=== PATIENT | male | born 1965 | race African-American/Black ===

== ENCOUNTER 2019-09-07 08:52 | Emergency (ER) | payer SELFPAY ==
--- NOTE | ~2019-09-07 | XR_ITS ---
EXAMINATION: XR knee RT min 4V DATE: 09/07/2019 09:28 INDICATION: Right knee joint effusion and pain. TECHNIQUE: 4 views of right knee were obtained. COMPARISON: Right knee radiographs 07/14/2017 FINDINGS: Bone alignment is normal. No fracture. There is severe osteoarthritis of lateral compartmen t and moderate osteoarthritis of medial and patellofemoral compartments. There is a large knee joint effusion. IMPRESSION: 1. Severe right knee osteoarthritis. 2. Large right knee joint effusion. Reviewed, dictated and finalized at location A.
[2019-09-07 09:00] VITALS: BP 181/106; PULSE 62; RESP 18; TEMP 36.9; O2SAT 100
--- NOTE | 2019-09-07 09:01 | ED.LOWEXIN ---
HPI - Extremity Injury (Lower) General Chief Complaint: Extremity Injury, Lower Stated Complaint: R knee swollen, can't walk Time Seen by Provider: 09/07/19 08:54 History of Present Illness HPI Narrative: Patient is a 54-year-old male who presents the ER with right knee swelling. Patient woke up this morning and his right knee was swollen. No known trauma. No history of gout. He has had a knee effusion in the past that required drainage that got better on its own. Chart review shows patient has told the physician previously that he has been diagnosed with possible gout, he is also been seen for additional joint related issues. No fever/chills/sweats. No redness to the knee. Reports he did eat some smoke turkey a couple days ago. No alcohol use. Related Data Allergies Allergy/AdvReac Type Severity Reaction Status Date / Time Penicillins Allergy Unknown Vomiting Verified 09/13/17 08:37 Review of Systems Review of Systems: All systems reviewed & are unremarkable except as noted in HPI and below Musculoskeletal: Musculoskeletal: Reports arthralgias and Reports joint swelling PMFSH Past Medical History Medical History (Updated 09/07/19 @ 11:35 by Suleiman Person MD) Gout Hypertension Surgical History Surgical History (Updated 09/07/19 @ 11:30 by Suleiman Person MD) History of knee surgery Previous back surgery Family History Family History (Updated 09/13/17 @ 08:39 by DOCTOR UNKNOWN) Other Family history of arthritis Social History Social History Smoking status: Former smoker Alcohol intake: never Gender identity (if verbalized by the patient): Male Exam Narrative: Exam Narrative: GENERAL: Well-appearing, well-nourished, and in no acute distress. HEAD: Normocephalic, atraumatic. ENT: Mucous membranes moist. HEART: Regular rate and rhythm. Normal peripheral pulses. EXTREMITIES: Large effusion right knee with limited range of motion due to pain. No significant peripheral edema. There is no overlying erythema to the knee. SKIN: Warm, dry, no rash. NEURO: Alert and oriented x3. Course Course Emergency Course: Unsuccessful attempt at draining the effusion. Given patient's questionable history of gout as well as the x-ray showing severe osteoarthritis it is likely patient has effusion either to gout or due to the arthritis alone. Patient has no signs or symptoms of infection including fevers/cellulitis. He will be treated with naproxen, norco, and colchicine. We will give Ortho follow-up for further evaluation. Able to ambulate with crutches and a walker. Vital Signs Vital signs: Vital Signs Temperature 98.4 F 09/07/19 09:00 Pulse Rate 62 09/07/19 09:00 Respiratory Rate 18 09/07/19 09:00 Blood Pressure 181/106 H 09/07/19 09:00 Pulse Oximetry 100 09/07/19 09:00 Temperature 98.4 F 09/07/19 09:00 Pulse Rate 62 09/07/19 09:00 Respiratory Rate 18 09/07/19 09:00 Blood Pressure 181/106 H 09/07/19 09:00 Pulse Oximetry 100 09/07/19 09:00 Procedures Joint Aspiration/Injection Joint Asp./Inject. 1: Joint Aspiration Date: 09/07/19 Joint Aspiration Time: 10:20 Time Out Performed: No Side of body: right Joint Aspirated: knee Skin Prep: sterile prep and drape (chlorhexidine used) Local Anesthetic: lidocaine 1% and with epi Amount of anesthesia used (mL): 4 Needle Size Used: 18G Fluid Obtained: none Complications: unable to obtain fluid MDM - Extremity Injury (Lower) Lab Data Result diagrams: 09/07/19 09:41 09/07/19 09:41 Labs: Lab Results 09/07/19 09/07/19 Range/Units 09:41 09:41 WBC 7.4 (4.5-10.0) K/mm3 RBC 4.64 (4.6-6.20) M/mm3 Hgb 12.9 L (14.0-18.0) g/dL Hct 40.9 L (42.0-52.0) % MCV 88.1 (80-100) fl MCH 27.8 (26-34) pg MCHC 31.5 L (32-36) g/dl RDW 14.6 H (11.5-14.5) % Plt Count 172 (150-375) k/mm3 MPV 11
[2019-09-07] MEDS: MORPHINE SULFATE 4 MG/ML INJ IV PUSH ×2 (09:20→10:35)
[2019-09-07 09:49] LABS: Basophils Percent Auto 0.3 % (0.2-1.2); Eosinophils Percent Auto 0.5 % (0-4.4); Hematocrit 40.9 % (42.0-52.0); Hemoglobin 12.9 g/dL (14.0-18.0); Immature Granulocyte Absolute 0.02 K/mm3 (0.00-0.031); Immature Granulocyte Percent A 0.3 % (0-0.5); Lymphocytes Absolute Auto 1.24 K/mm3 (0.9-3.2); Lymphocytes Percent Auto 16.7 % (18.3-44.2); Mean Corpuscular HGB Conc 31.5 g/dl (32-36); Mean Corpuscular Hemoglobin 27.8 pg (26-34); Mean Corpuscular Volume 88.1 fl (80-100); Mean Platelet Volume 11.3 fl (7.4-10.4); Monocytes Absolute Auto 0.6 K/mm3 (0.1-0.6); Monocytes Percent Auto 7.8 % (2.6-8.5); Neutrophils Absolute Auto 5.5 K/mm3 (1.3-6.7); Neutrophils Percent Auto 74.4 % (45.5-73.1); Platelet Count Result 172 k/mm3 (150-375); Red Blood Count 4.64 M/mm3 (4.6-6.20); Red Cell Distribution Width 14.6 % (11.5-14.5); White Blood Count 7.4 K/mm3 (4.5-10.0)
[2019-09-07 10:03] LABS: Blood Urea Nitrogen 16 mg/dL (9-20); Carbon Dioxide 23 mmol/L (22-30); Chloride 107 mmol/L (98-107); Estimated CRCL calculation 102 ml/min; Estimated Glomerular Filt Rate > 60; Glucose 104 mg/dL (75-110); Sodium 135 mmol/L (137-145)
--- NOTE | 2019-09-07 11:35 | PC.NURSE ---
Per Pt. stated I don't know why I came here, I feel worse than before I came here, you did not help with my pain . Pt. was redirected on that Pt. was given pain medication x2 to help relieve pain and EDP attempted to drain right knee with no success. Pt. was also given an mookie wrap and applied to right knee and crutches. Pt. was sent home with prescription pain medications and referred to ortho. Pt. refused crutches upon discharge stating I have a walker . EDP aware and ok with this.
[2019-09-07 11:40] VITALS: BP 155/107; PULSE 67; RESP 12; O2SAT 99
== END 2019-09-07 11:40 | disposition home or self-care (01) ==
PROVIDERS: Emergency Provider Emergency Medicine
DX: M25.461 Effusion, right knee (principal); M17.11 Unilateral primary osteoarthritis, right knee; I10 Essential (primary) hypertension; Z87.891 Personal history of nicotine dependence
CPT/HCPCS: 20610; 36415; 73564; 80048; 85025; 96374; 96376; 99284; J2270

== ENCOUNTER 2020-09-17 16:58 | Emergency (ER) | payer SELFPAY ==
--- NOTE | ~2020-09-17 | XR_ITS ---
EXAMINATION: XR knee RT 3V DATE: 09/17/2020 22:03 INDICATION: Chronic generalized right knee pain TECHNIQUE: Anteroposterior, 2 oblique and crosstable lateral views of the right knee were obtained COMPARISON: 09/07/2019 FINDINGS: Alignment is normal. No fracture. Severe joint space narrowing in the lateral compartment with remod eling of the lateral tibial plateau. Mild to moderate joint space narrowing in the patellofemoral com partment. There are large marginal osteophytes in all 3 compartments. Small knee joint effusion at th e suprapatellar pouch without layering lipohemarthrosis. Extensive scattered atherosclerotic calcific ations in the distal thigh and proximal calf. IMPRESSION: 1. Tricompartmental osteoarthritis, severe in the lateral compartment. No acute osseous abnormality. 2. Likely reactive small right knee joint effusion. Reviewed, dictated and finalized at location A.
--- NOTE | ~2020-09-17 | XR_ITS ---
EXAMINATION: XR shoulder LT min 2V DATE: 09/17/2020 22:04 INDICATION: Left shoulder pain. TECHNIQUE: AP internally and externally rotated, AP oblique externally rotated and transscapular Y vi ews of the left shoulder were obtained. COMPARISON: None FINDINGS: There is cephalad subluxation of the humeral head with respect to the glenoid resulting in some narro wing of the subacromial space and suggestive of rotator cuff tear. No fracture.Mild glenohumeral ost eoarthritis with mild cephalad predominant nonuniform joint space narrowing. Moderate acromioclavicul ar osteoarthritis. Visualized portions of the upper lungs are clear. Soft tissues are unremarkable. IMPRESSION: 1. Cephalad subluxation of the humeral head with respect to the glenoid and narrowing of the subacrom ial space raises suspicion for rotator cuff tear. 2. Mild left glenohumeral and moderate acromioclavicular osteoarthritis. Reviewed, dictated and finalized at location A. IMPRESSION: 1. Cephalad subluxation of the humeral head with respect to the glenoid and dwain rowing of the subacromial space raises suspicion for rotator cuff tear. 2. Mild left glenohumeral and moderate acromioclavicular osteoarthritis.
[2020-09-17 18:30] VITALS: BP 157/109; PULSE 58; RESP 18; TEMP 36.1; O2SAT 95
[2020-09-17 20:55] VITALS: BP 155/105; PULSE 50; RESP 20; O2SAT 100
--- NOTE | 2020-09-17 21:49 | ED.LOWEXIN ---
HPI - Extremity Injury (Lower) General Chief Complaint: Back Pain/Injury Stated Complaint: shoulder and knee pain Time Seen by Provider: 09/17/20 21:05 Source: patient Mode of arrival: ambulatory Limitations: no limitations History of Present Illness HPI Narrative: Patient is a 55-year-old male complaining of right knee pain and left shoulder pain that started 1 week ago. Patient states that his right knee pain is a 9 out of 10 aching nonradiating worse with movement and walking. Patient states that the pain severe he can hardly walk, patient walked with a cane to his room. Patient has a history of severe arthritis of his knees, last year he had his left knee drained due to effusion. Patient states his left shoulder pain is an 8 out of 10, aching states that he can hardly lift it above a certain level due to pain. Patient denies any fall or injury. Patient denies any neck pain, back pain, chest pain, alyce pain or any other extremity pain/injury. Related Data Allergies Allergy/AdvReac Type Severity Reaction Status Date / Time Penicillins Allergy Unknown Vomiting Verified 09/17/20 20:58 Review of Systems Review of Systems: All systems reviewed & are unremarkable except as noted in HPI and below Constitutional: Constitutional: Denies body ache(s), Denies chills, Denies excessive sweating, Denies fatigue, Denies fever(s), Denies headache(s), Denies lethargy, Denies malaise, Denies weakness and Denies weight loss Eyes: Eyes: Denies blurry vision, Denies change in vision and Denies loss of vision ENT: Denies dizziness, Denies ear discharge, Denies headache(s), Denies lip swelling, Denies epistaxis, Denies nasal congestion, Denies neck pain, Denies throat swelling and Denies tongue swelling Cardiovascular: Cardiovascular: Denies chest pain, Denies chest pain at rest, Denies chest pain with activity, Denies diaphoresis, Denies rapid heart rate, Denies edema, Denies irregular heart rhythm, Denies lightheadedness, Denies palpitations, Denies dyspnea and Denies dyspnea on exertion Respiratory: Respiratory: Denies chest congestion, Denies cough, Denies hemoptysis, Denies dyspnea and Denies dyspnea on exertion Gastrointestinal: Gastrointestinal: Denies abdominal pain, Denies melena, Denies hematochezia, Denies diarrhea, Denies nausea, Denies vomiting and Denies hematemesis Musculoskeletal: Musculoskeletal: Denies deformity, Denies joint swelling, Denies limited range of motion, Denies neck pain and Denies numbness Neurologic: Denies Abnormal speech present, Denies abnormal gait, Denies confusion, Denies dizziness, Denies headache(s), Denies focal weakness, Denies loss of vision, Denies numbness, Denies Other visual disturbances, Denies Sensory deficit (Neuro) and Denies weakness Psychiatric: Psychiatric: Denies confusion, Denies depression, Denies auditory hallucinations, Denies homicidal ideation and Denies suicidal ideation Endocrine: Endocrine: Denies cold intolerance, Denies excessive sweating, Denies fatigue, Denies heat intolerance and Denies palpitations Hematologic/Lymphatic: Hematologic/Lymphatic: Denies easy bleeding and Denies easy bruising Allergic/Immunologic: Allergic/Immunologic: Denies lip swelling, Denies throat swelling and Denies tongue swelling PMFSH Past Medical History Medical History Gout Hypertension Surgical History Surgical History History of knee surgery Previous back surgery Family History Family History Other Family history of arthritis Social History Social History Smoking status: Former smoker Alcohol intake: never Gender identity (if verbalized by the patient): Male Exam Const: General: cooperative, healthy appearing, comfortable, no acute distress, well developed, aler
[2020-09-17] MEDS: HYDROcodone/acetaminophen (*CRX) 5-325 MG TABLET 1 TAB PO (22:45)
[2020-09-17] MEDS: KETOROLAC 30 MG/ML VIAL (*BKC) IM (22:45)
[2020-09-17] MEDS: diazePAM INJ (*CRX) 10 MG/2 ML SYRINGE 5 MG IM (22:52)
[2020-09-17 23:05] VITALS: BP 175/100; PULSE 49; RESP 17; O2SAT 98
== END 2020-09-17 23:05 | disposition home or self-care (01) ==
PROVIDERS: Emergency Provider Emergency Medicine
DX: M17.11 Unilateral primary osteoarthritis, right knee (principal); M75.101 Unspecified rotator cuff tear or rupture of right shoulder, not specified as traumatic; M10.9 Gout, unspecified; I10 Essential (primary) hypertension
CPT/HCPCS: 73030; 73562; 96372; 99284; A9270; J1885; J3360

== ENCOUNTER 2021-05-09 10:22 | Observation (INO) | payer OTHER, SELFPAY ==
[2021-05-09] VITALS (8 sets, daily range): BP systolic 110–194; BP diastolic 68–114; PULSE 56–98; RESP 16–20; TEMP 36.1–36.6; O2SAT 95–100; BMI 33.8
--- NOTE | ~2021-05-09 | CT_ITS ---
EXAMINATION: CT abdomen pelvis w con DATE: 05/09/2021 14:54 INDICATION: Abdominal pain and diarrhea TECHNIQUE: Computed tomography (CT) of the abdomen and pelvis was performed with and without 100 cc O mnipaque 350 intravenous contrast. The dose-length product was 2922.79 mGy-cm. Automated exposure con trol and iterative reconstruction technique were employed. COMPARISON: CT dated 06/22/2008 FINDINGS: Lung bases are unremarkable. No significant pleural or pericardial effusion. There is an ap pendicolith with mild thickening of the tail of the appendix measuring 11 mm. Cannot exclude appendic itis. There is atherosclerosis of the aorta without areas. Heart size normal. Small subcentimeter hypodensities of the liver, too small to characterize, althoug h statistically likely benign. The spleen, pancreas, right adrenal gland are unremarkable. There is a 3 mm nonobstructing left renal stone. There is subtle hypodensity of the right kidney, most likely b enign cysts. No hydronephrosis. Gallbladder is present. Nonobstructive bowel gas pattern. No free air or free fluid. Prostate enlargement. There is osteoarthritis of the hips. Mild symmetric degenerativ e changes of the sacroiliac joints. Moderate lumbar spondylosis. IMPRESSION: 1. Mild thickening of the tail of the appendix distal to an appendicolith. Cannot exclude acute appen dicitis. 2: Nonobstructing 3 mm left renal stone. Reviewed, dictated and finalized at location [facility] IMPRESSION: 1. Mild thickening of the tail of the appendix distal to an appendicolith. [place] ot exclude acute appendicitis. 2: Nonobstructing 3 mm left renal stone.
[2021-05-09 13:27] LABS: Basophils Percent Auto 0.3 % (0.2-1.2); Eosinophils Absolute Auto 0.1 K/mm3 (0-0.3); Eosinophils Percent Auto 0.9 % (0-4.4); Hematocrit 40.5 % (42.0-52.0); Hemoglobin 12.7 g/dL (14.0-18.0); Immature Granulocyte Absolute 0.11 K/mm3 (0.00-0.031); Immature Granulocyte Percent A 0.9 % (0-0.5); Lymphocytes Absolute Auto 1.44 K/mm3 (0.9-3.2); Lymphocytes Percent Auto 11.2 % (18.3-44.2); Mean Corpuscular HGB Conc 31.4 g/dl (32-36); Mean Corpuscular Hemoglobin 28.3 pg (26-34); Mean Corpuscular Volume 90.2 fl (80-100); Mean Platelet Volume 10.1 fl (7.4-10.4); Monocytes Absolute Auto 0.9 K/mm3 (0.1-0.6); Neutrophils Absolute Auto 10.2 K/mm3 (1.3-6.7); Neutrophils Percent Auto 79.7 % (45.5-73.1); Nucleated Red Blood Cells Perc 0.2 % (0.0-0.2); Platelet Count Result 292 k/mm3 (150-375); Red Blood Count 4.49 M/mm3 (4.6-6.20); Red Cell Distribution Width 14.9 % (11.5-14.5); White Blood Count 12.8 K/mm3 (4.5-10.0)
[2021-05-09 13:38] LABS: Alanine Aminotransferase 23 U/L (4-50); Albumin Level 4.4 g/dL (3.5-5.1); Alkaline Phosphatase 88 U/L (38-126); Anion Gap 10 mmol/L (8-16); Aspartate Amino Transferase 32 U/L (17-59); Bilirubin,Total 1.4 mg/dL (0.2-1.3); Blood Urea Nitrogen 28 mg/dL (9-20); Calcium 9.8 mg/dL (8.4-10.2); Carbon Dioxide 25 mmol/L (22-30); Chloride 104 mmol/L (98-107); Estimated CRCL calculation 73 ml/min; Estimated Glomerular Filt Rate > 60; Glucose 104 mg/dL (65-110); Lipase 38 U/L (23-300); Potassium 3.7 mmol/L (3.4-5.0); Sodium 139 mmol/L (137-145)
--- NOTE | 2021-05-09 13:47 | ED.ABDPAIN ---
HPI - Abdominal Pain General Chief Complaint: Abdominal Pain <NICOLAS Abrams Last Filed: 05/09/21 16:05> Stated Complaint: ABD Pain <NICOLAS Abrams Last Filed: 05/09/21 16:05> Time Seen by Provider: 05/09/21 12:59 <NICOLAS Abrams Last Filed: 05/09/21 16:05> Source: patient <NICOLAS Abrams Last Filed: 05/09/21 16:05> Mode of arrival: ambulatory <NICOLAS Abrams Last Filed: 05/09/21 16:05> Limitations: no limitations <NICOLAS Abrams Last Filed: 05/09/21 16:05> History of Present Illness HPI narrative: This is a 55-year-old male that presents to the emergency department for abdominal pain present x2 days. Reports a constant lower abdominal pain. Associated with diarrhea and nausea. Denies fever, vomiting, hematochezia, or dysuria. <NICOLAS Abrams Last Filed: 05/09/21 16:05> Related Data Home Medications: Home Medications Medication Instructions Recorded Confirmed cefadroxil 500 mg PO BID 05/09/21 05/09/21 celecoxib [Celebrex] 200 mg PO BID 05/09/21 05/09/21 gabapentin 300 mg PO BID 05/09/21 05/09/21 lisinopril-hydrochlorothiazide 12.5 tablet PO DAILY 05/09/21 05/09/21 oxycodone 5 mg PO Q4-6H PRN 05/09/21 05/09/21 <NICOLAS Abrams Last Filed: 05/09/21 16:05> Allergies/Adverse Reactions: Allergies Allergy/AdvReac Type Severity Reaction Status Date / Time Penicillins AdvReac Unknown Vomiting Verified 05/09/21 13:45 <NICOLAS Abrams Last Filed: 05/09/21 16:05> Review of Systems Review of Systems: CONSTITUTIONAL: Denies fever GASTROINTESTINAL: Reports abdominal pain, nausea, and diarrhea. Denies vomiting GENITOURINARY: Denies dysuria <Lisa Chan PA-C - Last Filed: 05/09/21 16:05> All systems reviewed & are unremarkable except as noted in HPI and below <Lisa Chan PA-C - Last Filed: 05/09/21 16:05> PMFSH Past Medical History Medical History: Medical History (Updated 05/09/21 @ 15:59 by Lisa Chan PA-C) Gout Hypertension Tobacco abuse <Lisa Chan PA-C - Last Filed: 05/09/21 16:05> Surgical History Surgical History: Surgical History History of knee surgery Previous back surgery <Lisa Chan PA-C - Last Filed: 05/09/21 16:05> Family History Family History: Family History Other Family history of arthritis <Lisa Chan PA-C - Last Filed: 05/09/21 16:05> Social History Social History: Social History Smoking status: Former smoker Alcohol intake: never Gender identity (if verbalized by the patient): Male <Lisa Chan PA-C - Last Filed: 05/09/21 16:05> Exam Narrative: GENERAL: Well-appearing, well-nourished, and in no acute distress. HEAD: Normocephalic, atraumatic. EYES: EOMI. CHEST: Clear to auscultation. No respiratory distress. No wheezes rales or rhonchi HEART: Regular rate and rhythm. No murmur heard. Normal peripheral pulses. ABDOMEN: Soft, nondistended, normal active bowel sounds. Tenderness to palpation throughout the lower abdomen, without guarding. No CVA tenderness EXTREMITIES: Normal range of motion. No edema. SKIN: Warm, dry, no rash. NEURO: No focal deficits. Alert and oriented x3. PSYCH: Normal mood and affect <Lisa Chan PA-C - Last Filed: 05/09/21 16:05> Course TELECOM ENGINEER/PA Physician Supervision For this patient encounter, I reviewed the TELECOM ENGINEER or PA documentation, treatment plan, and medical decision making; and I had [id number] time with this patient. <Gerry Rucker MD - Last Filed: 05/09/21 23:04> Vital Signs Vital signs: Vital Signs Temperature 97.7 F 05/09/21 10:43 Pulse Rate 98 05/09/21 10:43 Respiratory Rate 17 05/09/21 10:43 Blood Pressure 110/93 H 05/09/21 10:43 Pulse Oximetry
[2021-05-09] MEDS: SODIUM CHLORIDE 0.9% IV 500 ML 999 ML IV CONT (14:59)
[2021-05-09] MEDS: MORPHINE SULFATE (*CRX) 4 MG/ML INJ IV PUSH (15:00)
[2021-05-09] MEDS: ONDANSETRON INJ 4 MG/2 ML VIAL IV PUSH (15:00)
[2021-05-09 15:19] LABS: Add Urine Microscopic? YES; Appearance Urine Clear (Clear); Bilirubin Urine 1+ (Negative); Blood Urine Negative (Negative); Color Urine Amber (Yellow); Glucose Urine UA Negative (Negative); Ketones Urine 1+ mg/dL (Negative); Leukocyte Esterase Ur Negative LEU/UL (Negative); Mucus Urine Few /lpf; Nitrate Urine Negative (Negative); Protein Urine 3+ mg/dL (Negative); RBC Urine 0-2 /hpf (0-2); Specific Grav Ur 1.028 (1.001-1.035); Squamous Epithelial Cell Urine Rare /hpf (Few); WBC Urine 0-3 /hpf
--- NOTE | 2021-05-09 15:35 | WPDANESEPP ---
Anes - Eval Pre Procedure Procedure: Lap Appy Date/Time: 05/09/21 15:35 Surgeon: Tyson Preop Diagnosis: Acute Appendicitis Pre Op Diagnosis: ABD Pain Patient Data Age: 55 Gender: M Height: 1.7 m Weight: 113.4 kg Last Vital Signs Temp 97.7 F 05/09/21 10:43 Pulse 98 05/09/21 10:43 Resp 17 05/09/21 10:43 BP 110/93 H 05/09/21 10:43 Pulse Ox 100 05/09/21 10:43 Allergies Allergy/AdvReac Type Severity Reaction Status Date / Time Penicillins AdvReac Unknown Vomiting Verified 05/09/21 13:45 Home Medications Medication Instructions Recorded Confirmed Type hydrocodone-acetaminophen 1 tablet PO Q6H PRN #20 tablet 09/07/19 Rx naproxen 500 mg PO BID #20 tablet 09/07/19 Rx tramadol 50 mg PO Q6H PRN #12 tablet 09/17/20 Rx cefadroxil 05/09/21 History celecoxib mg 05/09/21 History gabapentin 05/09/21 History lisinopril-hydrochlorothiazide tablet 05/09/21 History oxycodone 05/09/21 History Laboratory Tests 05/09/21 05/09/21 05/09/21 13:20 13:20 15:06 WBC 12.8 K/mm3 H K/mm3 (4.5-10.0) RBC 4.49 M/mm3 L M/mm3 (4.6-6.20) Hgb 12.7 g/dL L g/dL (14.0-18.0) Hct 40.5 % L % (42.0-52.0) MCV 90.2 fl fl (80-100) MCH 28.3 pg pg (26-34) MCHC 31.4 g/dl L g/dl (32-36) RDW 14.9 % H % (11.5-14.5) Plt Count 292 k/mm3 D k/mm3 (150-375) MPV 10.1 fl fl (7.4-10.4) Immature Gran % (Auto) 0.9 % H % (0-0.5) Neut % (Auto) 79.7 % H % (45.5-73.1) Lymph % (Auto) 11.2 % L % (18.3-44.2) [place] % (Auto) 7.0 % % (2.6-8.5) Eos % (Auto) 0.9 % % (0-4.4) Baso % (Auto) 0.3 % % (0.2-1.2) Lymph # (Auto) 1.44 K/mm3 K/mm3 (0.9-3.2) [place] # (Auto) 0.9 K/mm3 H K/mm3 (0.1-0.6) Eos # (Auto) 0.1 K/mm3 K/mm3 (0-0.3) Baso # (Auto) 0.0 K/mm3 K/mm3 (0.0-0.1) Abs Immat Gran (auto) 0.11 K/mm3 H K/mm3 (0.00-0.031) Absolute Neuts (auto) 10.2 K/mm3 H K/mm3 (1.3-6.7) Absolute Nucleated RBC 0.0 K/mm3 K/mm3 (0.0-0.012) Nucleated RBC % 0.2 % % (0.0-0.2) Sodium 139 mmol/L mmol/L (137-145) Potassium 3.7 mmol/L mmol/L (3.4-5.0) Chloride 104 mmol/L mmol/L (98-107) Carbon Dioxide 25 mmol/L mmol/L (22-30) Anion Gap 10 mmol/L mmol/L (8-16) BUN 28 mg/dL H D mg/dL (9-20) Creatinine 1.20 mg/dL mg/dL (0.7-1.3) Estim Creat Clear Calc 73 ml/min ml/min Estimated GFR > 60 (59 - ) Glucose 104 mg/dL mg/dL (65-110) Calcium 9.8 mg/dL mg/dL (8.4-10.2) Total Bilirubin 1.4 mg/dL H mg/dL (0.2-1.3) AST 32 U/L U/L (17-59) ALT 23 U/L U/L (4-50) Alkaline Phosphatase 88 U/L U/L (38-126) Total Protein 8.0 g/dL g/dL (6.3-8.2) Albumin 4.4 g/dL g/dL (3.5-5.1) Lipase 38 U/L U/L (23-300) Urine Color Clari (Yellow) Urine Appearance Clear (Clear) Urine pH 5.0 (5.0-9.0) Ur Specific [place] 1.028 (1.001-1.035) Urine Protein 3+ mg/dL H mg/dL (Negative) Urine Glucose (UA) Negative mg/dL mg/dL (Negative) Urine Ketones 1+ mg/dL H mg/dL (Negative) Ur Blood (Man) Negative (Negative) Urine Nitrate Negative (Negative) Urine Bilirubin 1+ H (Negative) Urine Urobilinogen 4.0 mg/dL H mg/dL (<2.0) Leukocyte Esterase Rfl Negative VALARIE/UL VALARIE/UL (Negative) Urine RBC 0-2 /hpf /hpf (0-2) Urine WBC 0-3 /hpf /hpf Ur Squamous Epith Cells Rare /hpf /hpf (Few) Hyaline Casts 3-4 /lpf H /lpf (None) Urine Mucus Few /lpf H /lpf ECG: pending Patient hx anesthesia problems: none Family hx anesthesia problems: none Resul
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
--- NOTE | 2021-05-09 15:57 | WPDHPUPDATE1 ---
History and Physical Update Update Date/Time: 05/09/21 15:57 History and Physical has been reviewed, including an updated exam of the patient. There are NO changes in the patient's condition. Risks, benefits, and alternatives have been discussed and questions answered. Patient agrees to proceed with procedure.
--- NOTE | 2021-05-09 16:30 | PC.NURSE ---
PACU came and took patient to surgery. Report given bedside.
--- NOTE | 2021-05-09 16:45 | WPDANESEFPP ---
Anes - Eval Final PreProcedure Day of Procedure 05/09/21 16:45 Patient weight: morbidly obese Heart: regular rate and rhythm Lungs: decreased breath sounds Airway: Mallampati scale class II Neurological: alert and oriented Last oral intake: >/= 8 hours ASA classification: III Emergent: yes Anesthetic plan: proceed Anesthesia type and monitoring: general ETT and standard monitoring Other findings: sb non spec ekg Results Review: All pre-operative results and documents have been reviewed as part of the pre-operative evaluation. Informed Consent: The patient's anesthetic plan and its attendant risks and benefits were discussed with the patient/family/POA. Questions were solicited and answers provided to the satisfaction of the patient/family/POA.
[2021-05-09] MEDS: BUPIVACAINE HCL 0.5% PF 30 ML VIAL INFILTRATE (17:13)
[2021-05-09] MEDS: LACTATED RINGERS 1,000 ML 30 ML IV CONT ×2 (17:45→18:00)
--- NOTE | 2021-05-09 17:52 | P.OP_ITS ---
Procedure Note - Detailed Date of Procedure 05/09/21 Pre-op Diagnosis Acute appendicitis Post-op Diagnosis same Procedure Performed laparoscopic appendectomy Surgeon Meme Mehta MD Anesthesia general Indications 55-year-old male presenting with lower abdominal pain, workup in the emergency department significant for acute appendicitis Findings tip appendicitis with fecalith Description of Procedure The patient was taken to the operating room and placed in the supine position. After adequate induction of general anesthesia, the patient was prepped and draped in the normal sterile fashion. A time-out was then done to verify the patient's identity, as well as the procedure being performed. I began by making a 5 mm incision in the infraumbilical region, through this a Veress needle was placed in the peritoneal cavity. CO2 gas was then insufflated and after adequate pneumoperitoneum was achieved the Veress needle was removed. Then placed a 5 mm Optiview trocar under direct visualization into the peritoneal cavity. I then insufflated through this trocar site and the endoscope was placed into the trocar. Under direct visualization, placed 2 further 5 mm suprapubic port as well as an additional 12 mm port in the left lower abdomen. At this point identified the cecum, I retracted the cecum both medially and superiorly allowing me to expose the appendix. The appendix was noted to be s omewhat dilated and inflamed especially towards the tip. There was also noted to be a fecalith in the appendix. The appendix was noted to be very adherent to the right lateral sidewall as well as the ileum. I was able to bluntly dissect the appendix from these adhesions. I then was able to locate the base of the appendix with the cecum. I created a window with the [place] dissector between the appendix itself and the mesoappendix. I then transected the mesoappendix with a white vascular staple load x 2. The Endo-BRAYDEN was then reloaded with a blue staple load and I transected the base of the appendix. Once the specimen was completely detached, an endo-pouch was placed into the 12 mm port site and the specimen was removed through the endo-pouch. The appendiceal specimen will be sent to pathology for further review. I then copiously irrigated the right lower quadrant. Hemostasis was noted at both staple lines no other pathology was seen in this area. I then moved the camera to the suprapubic port to check our its port of entry. No iatrogenic injury or other pathology was noted in the upper abdomen. I then closed the 12 mm port site with a Rbandan code and 0 Vicryl suture under direct visualization. At this point, the abdomen was desufflated and all ports were removed. All port sites were closed with 4 Monocryl subcuticular suture. Dermabond was placed on all wounds. The patient tolerated the procedure well and was extubated in the operating room postop. He will be sent to the recovery room in stable condition. Estimated Blood Loss 10 Drains No Packing No Pathology yes Complications No immediate complications Condition stable Disposition PACU
[2021-05-09] MEDS: HYDROmorphone HCL INJ (*CRX) 1 MG/ML SYR IV PUSH ×2 (18:00→18:20)
[2021-05-09] MEDS: MORPHINE SULFATE (*CRX) 2 MG/ML INJ IV PUSH (19:28)
--- NOTE | 2021-05-09 19:41 | ADMGEN ---
This patient, Gerry Francis, was admitted to Medical Room 347-01. Patient/family oriented to hospital policies and general routines including ID bracelet, bed and alarms, visiting hours, pain management, procedures, bathroom and other care routines, personal items, smoking policy, room service/diet, and visiting hours. Information on how to activate the Rapid Response Team has been discussed. Patient/Family are encouraged to report perceived risks to care and to ask questions if they do not understand what they are told or what they should do.
[2021-05-09] MEDS: HYDROcodone/acetaminophen (*CRX) 5-325 MG TABLET 1 TAB PO (20:50)
[2021-05-10] MEDS: HYDROcodone/acetaminophen (*CRX) 5-325 MG TABLET 1 TAB PO ×3 (01:16→11:50)
[2021-05-10 06:59] VITALS: BP 137/89; PULSE 92; RESP 20; TEMP 36.6; O2SAT 98
--- NOTE | 2021-05-10 09:56 | PM.DS ---
DS: Admitting Diagnosis Discharge Date 05/10/2021 Admitting Diagnosis acute appendicitis DS: Discharge Diagnosis Discharge Diagnosis (1) Acute appendicitis: Qualifiers: Acute appendicitis type: with localized peritonitis Appendicitis abscess presence: without abscess Appendicitis gangrene presence: without gangrene Appendicitis perforation presence: without perforation Qualified Code(s): K35.30 - Acute appendicitis with localized peritonitis, without perforation or gangrene Code(s): K35.80 - Unspecified acute appendicitis Status: Acute Assessment and Plan: status post laparoscopic appendectomy, continue routine postoperative care, home with prescriptions for [place] and Colace, follow-up 2 weeks (2) Hypertension: Code(s): I10 - Essential (primary) hypertension Status: Acute Assessment and Plan: continue home medications per primary care physician (3) Obesity (BMI 30-39.9): Code(s): E66.9 - Obesity, unspecified Status: Acute Assessment and Plan: dietary and lifestyle modifications discussed with patient DS: Summary Hospital Course Reason for hospitalization: acute appendicitis Hospital Course: The patient is a 55-year-old male presenting to the emergency department complaining of severe lower abdominal pain. Workup in the emergency department, including imaging, was significant for acute appendicitis with fecalith. Given this, the patient was admitted to my service, made NPO, and started on IV antibiotics. The patient was taken to the operating room on 05/09/2021 and a laparoscopic appendectomy was performed, please see full operative report for details of that procedure. Postop, the patient did well and was transferred to the surgical floor. On postoperative day 1., the patient was doing well and tolerating a heart healthy diet. He has been ambulating without issue. His pain has been well controlled with p.o. analgesia. He will be discharged at this time with p.o. analgesia, Colace. He has been given instructions for routine postoperative care and will follow up with me in 2 weeks. Status at Discharge Functional status at discharge: independent ambulation Overall status at discharge: patient is progressing back to baseline Time Spent with Patient Time attestation: Total time spent providing and/or coordinating discharge services: Time spent: Less than 30 minutes Exam Const: General: cooperative, comfortable and no acute distress Resp: Effort & Inspection: normal respiratory effort Auscultation: clear to auscultation bilaterally Cardio: Rate: regular rate Rhythm: regular rhythm GI: Inspection: normal to inspection, non-distended and incision GI Palp: Yes Soft to palpation, Yes Tenderness to palpation present (GI), No Guarding due to palpation present (GI) and No Rigid due to palpation DS: Data Data Completed and Pending Pending studies at discharge: Pending at discharge 05/09/21 17:09 Surgical [PTH] Routine Labs on day of discharge: Labs from last 24 hours 05/09/21 05/09/21 05/09/21 15:06 13:20 13:20 WBC 12.8 H RBC 4.49 L Hgb 12.7 L Hct 40.5 L MCV 90.2 MCH 28.3 MCHC 31.4 L RDW 14.9 H Plt Count 292 D MPV 10.1 Immature Gran % (Auto) 0.9 H Neut % (Auto) 79.7 H Lymph % (Auto) 11.2 L [place] % (Auto) 7.0 Eos % (Auto) 0.9 Baso % (Auto) 0.3 Lymph # (Auto) 1.44 [place] # (Auto) 0.9 H Eos # (Auto) 0.1 Baso # (Auto) 0.0 Abs Immat Gran (auto) 0.11 H Absolute Neuts (auto) 10.2 H Absolute Nucleated RBC 0.0 Nucleated RBC % 0.2 Sodium 139 Potassium 3.7 Chloride 104 Carbon Dioxide 25 Anion Gap 10 BUN 28 H D Creatinine 1.20 Estim Creat Clear Calc 73 Estimated GFR > 60 Glucose 104 Calcium 9.8 Total Bilirubin 1.4 H AST 32 ALT 23 Alkaline Phosphatase 88 Total Protein 8.0 Albumin 4.4 Lipase 38 Urine Col
== END 2021-05-10 15:31 | disposition home health service (06) ==
LOC: ANHED 15:59 → ANHSURGERY 18:31 → ANH3MED 19:20
PROVIDERS: Physician Assistant; Admitting Provider Surgery; Emergency Provider Emergency Medicine; PCP Nurse Practitioner Adult Health; Visit Provider Surgery
PROC: 0DTJ4ZZ Resection of Appendix, Percutaneous Endoscopic Approach (ICD-10-PCS; CPT 44970; principal; 2021-05-09 16:30)
DX: K35.30 Acute appendicitis with localized peritonitis, without perforation or gangrene (principal); I10 Essential (primary) hypertension; Z87.891 Personal history of nicotine dependence; E66.9 Obesity, unspecified; Z68.33 Body mass index [BMI] 33.0-33.9, adult
CPT/HCPCS: 44970; 36415; 74177; 80053; 81001; 83690; 85025; 88304; 96361; 96374; 96375; 96376; 99285; A9270; G0378; G0379; J0131; J1170; J2250; J2270; J2405; J2704; J2710; J3010; J7040; J7120; Q9967

== ENCOUNTER 2021-06-23 21:00 | Emergency (ER) | payer OTHER, SELFPAY ==
--- NOTE | ~2021-06-23 | XR_ITS ---
EXAMINATION: XR elbow RT min 3V EXAM DATE: 06/23/2021 22:50 INDICATION: Right elbow pain, no known recent injury. TECHNIQUE: Right elbow frontal, lateral with flexion, and oblique projections obtained and reviewed. Comparison is made to prior examination from 07/10/2004. FINDINGS: There is no acute fracture identified. No erosive change. There is mild right elbow primar y osteoarthritis. Can't identify the fat pads, which could indicate displacement from a joint effusion but there was a similar appearance to the right elbow on an x-ray from 2004. IMPRESSION: Osteoarthritis. No acute osseous findings. Reviewed, dictated and finalized at location [facility]
[2021-06-23 21:05] VITALS: BP 151/107; PULSE 81; RESP 18; TEMP 36.3; O2SAT 98
--- NOTE | 2021-06-23 22:33 | ED.UPPEXIN ---
HPI - Extremity Injury (Upper) General Chief Complaint: Extremity Injury, Upper Stated Complaint: elbow pain Time Seen by Provider: 06/23/21 22:17 Source: patient Mode of arrival: ambulatory Limitations: no limitations History of Present Illness HPI narrative: Patient is a 55-year-old male complaining of right elbow pain, 8 out of 10, dull, aching, worse with palpation movement that started last night. Patient denies any injury to the area. Patient denies any chest pain, shortness of breath, diaphoresis, fever or chills. Related Data Home Medications Medication Instructions Recorded Confirmed cefadroxil 500 mg PO BID 05/09/21 05/20/21 celecoxib [Celebrex] 200 mg PO BID 05/09/21 05/20/21 gabapentin 300 mg PO BID 05/09/21 05/20/21 lisinopril-hydrochlorothiazide 12.5 tablet PO DAILY 05/09/21 05/20/21 oxycodone 5 mg PO Q4-6H PRN 05/09/21 05/20/21 Allergies Allergy/AdvReac Type Severity Reaction Status Date / Time Penicillins AdvReac Unknown Vomiting Verified 06/23/21 21:10 Review of Systems Review of Systems: All systems reviewed & are unremarkable except as noted in HPI and below Constitutional: Constitutional: Reports as per HPI PMFSH Past Medical History Medical History Gout Hypertension Tobacco abuse Surgical History Surgical History History of knee surgery History of laparoscopic appendectomy 05/09/21 Previous back surgery Family History Family History Other Family history of arthritis Social History Social History Smoking status: Former smoker Alcohol intake: never Gender identity (if verbalized by the patient): Male Exam Const: General: no acute distress and alert Nutritional Appearance: well nourished and obese Orientation/consciousness: patient oriented x3 HENMT: Head: normal to inspection Eyes: Conjunctivae: conjunctivae normal Resp: Effort & Inspection: normal respiratory effort Skin: General skin exam: normal color Rashes: no rashes Neuro: General: patient oriented x3 and moves all extremities Extrem: General: normal to inspection Other: Negative for any right elbow or forearm deformity, erythema, effusion or significant swelling. Pain on palpation. Pain on range of motion. Neurovascular is intact Course Vital Signs Vital signs: Vital Signs Temperature 36.3 C L 06/23/21 21:05 Pulse Rate 81 06/23/21 21:05 Respiratory Rate 18 06/23/21 21:05 Blood Pressure 151/107 H 06/23/21 21:05 Pulse Oximetry 98 06/23/21 21:05 Temperature 36.3 C L 06/23/21 21:05 Pulse Rate 81 06/23/21 21:05 Respiratory Rate 18 06/23/21 21:05 Blood Pressure 151/107 H 06/23/21 21:05 Pulse Oximetry 98 06/23/21 21:05 Discharge Plan Discharge Clinical Impression: Elbow pain, right Patient Disposition: Home, Self-Care Condition: Stable Instructions: Osteoarthritis (ED), Elbow Sprain (ED) Prescriptions: No Action tramadol 50 mg tablet 50 mg PO Q6H PRN (Reason: pain) Qty: 12 RF: 0 celecoxib [Celebrex] 200 mg capsule 200 mg PO BID RF: 0 lisinopril-hydrochlorothiazide 20-12.5 mg tablet 12.5 tablet PO DAILY RF: 0 cefadroxil 500 mg capsule 500 mg PO BID RF: 0 gabapentin 300 mg capsule 300 mg PO BID RF: 0 oxycodone 5 mg tablet 5 mg PO Q4-6H PRN (Reason: Pain) RF: 0 Follow-up/Referrals: Tawanda Cole MD [Physician] - 06/25/21 (Call for an appointment) Akash,GORDON Fernandez [Primary Care Provider] - 06/25/21 Time of Disposition: 23:30
--- NOTE | 2021-06-23 22:50 | PC.NURSE ---
Assumed care of pt, report from Jennifer CASTILLO. Portable XRAY at bedside at this time.
[2021-06-23] MEDS: HYDROcodone/acetaminophen (*CRX) 5-325 MG TABLET 1 TAB PO (23:48)
[2021-06-23] MEDS: KETOROLAC 30 MG/ML VIAL (*BKC) IM (23:50)
[2021-06-23 23:51] VITALS: BP 133/79; PULSE 88; RESP 17; O2SAT 100
== END 2021-06-23 23:53 | disposition home or self-care (01) ==
PROVIDERS: Emergency Provider Emergency Medicine; PCP Nurse Practitioner Adult Health
DX: M25.521 Pain in right elbow (principal); M10.9 Gout, unspecified; I10 Essential (primary) hypertension
CPT/HCPCS: 73080; 96375; 99283; A4565; A9270; J1885

== ENCOUNTER 2022-03-09 12:26 | Outpatient (CLI) | payer MEDICARE, MEDICAID, SELFPAY ==
--- NOTE | 2022-03-09 | ECHO_ITS ---
Patient Info Name: Gerry Francis Age: 56 years : 1965 Gender: Male Ht: 67 in Wt: 245 lbs BSA: 2.34 m2 HR: 57 bpm BP: 191 / 123 mmHg Heart Rhythm: Bradycardia Exam Date: 03/09/2022 1:23 PM Exam Location: [facility] Pulmonary Patient Status: Outpatient Admit Date: 03/09/2022 Staff Ordering Physician: AkashRebecca NP Manager Government: Carlos Healy, DEMI, RT Attending Provider: AkashRebecca NP Exam Type: CA echo doppler color flow Study Info Indications I10 - Essential (primary) hypertension Complete two-dimensional, color flow and Doppler transthoracic echocardiogram is performed. Strain analysis performed. Summary 1. Complete two-dimensional, color flow and Doppler transthoracic echocardiogram is performed. 2. Global longitudinal strain is borderline at -17 %. 3. Left ventricular chamber dimension is normal. 4. Left ventricular systolic function is normal, estimated at 65-70%. 5. There is moderately increased left ventricular wall thickness. 6. The left ventricular diastolic function is grade I diastolic dysfunction. 7. Right atrial chamber dimension is mildly enlarged. 8. Suspected patent foramen ovale visualized by color flow imaging. 9. There is mild mitral valve regurgitation. 10. There is mild pulmonic regurgitation. Left Ventricle Global longitudinal strain is borderline at -17 %. Left ventricular chamber dimension is normal. Left ventricular systolic function is normal, estimated at 65-70%. There is moderately increased left ventricular wall thickness. The left ventricular diastolic function is grade I diastolic dysfunction. Right Ventricle Right ventricular chamber dimension is normal. Right ventricular systolic function is normal. Left Atria Left atrial chamber dimension is normal. Right Atria Right atrial chamber dimension is mildly enlarged. Atrial Septum Suspected patent foramen ovale visualized by color flow imaging. Aortic Valve The aortic valve is trileaflet. There is mild aortic valve sclerosis. There is no aortic valve stenosis. There is trace aortic valve regurgitation. Pulmonic Valve The pulmonic valve is normal. There is no pulmonic valve stenosis. There is mild pulmonic regurgitation. Mitral Valve The mitral valve has normal leaflets. There is no mitral valve stenosis. There is mild mitral valve regurgitation. Tricuspid Valve The tricuspid valve leaflets are normal. There is no significant tricuspid valve stenosis. There is trace tricuspid valve regurgitation. Pericardium/Pleural The pericardium appears normal. There is no pericardial effusion. Inferior Vena Cava Normal inferior vena cava with >50% collapse upon inspiration consistent with normal right atrial pressure, 5 mmHg. Aorta The aortic root size at the sinus of Valsalva is normal. The prox ascending aorta size is normal. Left Ventricular Outflow Tract Name Value Normal LVOT 2D LVOT Diameter 2.1 cm LVOT Doppler LVOT Peak Gradient 4 mmHg LVOT Mean Gradient 2 mmHg LVOT VTI 21 cm
== END 2022-03-09 12:27 | disposition home or self-care (01) ==
LOC: ANHIMG 12:41 → ANHCARD 12:46
PROVIDERS: PCP Nurse Practitioner Adult Health; Visit Provider Nurse Practitioner Adult Health
DX: I08.3 Combined rheumatic disorders of mitral, aortic and tricuspid valves (principal)
CPT/HCPCS: 93306

== ENCOUNTER 2022-03-15 08:10 | Outpatient (CLI) | payer MEDICARE, MEDICAID, SELFPAY ==
--- NOTE | ~2022-03-15 | US_ITS ---
EXAMINATION: US retroperitoneal duplex ltd DATE: 03/15/2022 10:23 CDT INDICATION: Hypertension. Obesity. TECHNIQUE: Sonographic imaging of the kidneys was performed with a 3.5 MHz transducer. Retroperitone al duplex sonogram of the renal arteries also obtained. FINDINGS: No focal flow abnormalities are seen in the renal arteries on color Doppler. The peak syst olic velocity ranges of the right and left renal arteries and aorta are 38 cm per second, 94 cm per s econd, and 79 cm per second, respectively. The velocities and renal to aortic ratios are within thomas l limits. Right kidney measures 11.2 cm. Left kidney measures 11.4 cm. No hydronephrosis. IMPRESSION: 1. No Doppler evidence of renal artery stenosis. Reviewed, dictated and finalized at location B.
== END 2022-03-15 08:11 | disposition home or self-care (01) ==
LOC: ANHIMG 08:11
PROVIDERS: PCP Nurse Practitioner Adult Health; Visit Provider Nurse Practitioner Adult Health
DX: I10 Essential (primary) hypertension (principal)
CPT/HCPCS: 93976

== ENCOUNTER 2022-03-16 23:49 | Emergency (ER) | payer MEDICARE, MEDICAID, SELFPAY ==
--- NOTE | ~2022-03-16 | XR_ITS ---
EXAMINATION: XR chest 2V DATE: 03/17/2022 00:17 INDICATION: Hypertension. Left-sided chest pain. TECHNIQUE: PA and lateral views of the chest were obtained. COMPARISON: Chest radiograph dated 02/01/2008 FINDINGS: Pulmonary vascular congestion and mild opacities in the dependent lower lung zones. No pleural effusi on or pneumothorax. Cardiomegaly. Tortuous thoracic aorta. IMPRESSION: 1. Mild dependent bibasilar opacities most likely atelectasis or minimal pulmonary edema with differe ntial including pneumonia. 2. Cardiomegaly. Reviewed, dictated and finalized at location A. IMPRESSION: 1. Mild dependent bibasilar opacities most likely atelectasis or minimal pulmon choco edema with differential including pneumonia. 2. Cardiomegaly.
[2022-03-16 23:51] VITALS: BP 149/81; PULSE 57; RESP 14; TEMP 36.7; O2SAT 99
[2022-03-16 23:56] VITALS: BP 142/85; PULSE 62; RESP 14; TEMP 36.9; O2SAT 96
--- NOTE | 2022-03-16 23:56 | ECG_ITS ---
Measurements Intervals [place] Rate: 57 P: 14 AR: 166 QRS: -43 QRSD: 113 T: -15 QT: 422 QTc: 413 Interpretive Statements SINUS BRADYCARDIA WITH SINUS ARRHYTHMIA LEFT AXIS DEVIATION NONSPECIFIC ST-T WAVE ABNORMALITY INTRAVENTRICULAR CONDUCTION DELAY [110+ ms QRS DURATION] NO PREVIOUS ECG AVAILABLE FOR COMPARISON Electronically Signed On 03-17-2022 13:08:34 CDT by Mike Haque M.D.
[2022-03-17] VITALS: BP 150/85
--- NOTE | 2022-03-17 00:09 | ED.RECABL ---
HPI - Recheck/Abnormal Lab/Rx General Chief Complaint: Recheck/Abnormal Lab/Rx Stated Complaint: HTN Time Seen by Provider: 03/16/22 23:57 Source: patient Mode of arrival: ambulatory Limitations: no limitations History of Present Illness HPI narrative: This is a 56 year old male that presents to the ER for hypertension. Reports he took his blood pressure tonight and noted it was elevated. He was not having any symptoms with this. Reports he takes Lisinopril/HCTZ. Amlodipine was also added recently. Reports he has been taking these medications as prescribed. Denies headache, chest pain, or shortness of breath. Related Data Home Medications Medication Instructions Recorded Confirmed cefadroxil 500 mg capsule 500 mg PO BID 05/09/21 05/20/21 gabapentin 300 mg capsule 300 mg PO BID 05/09/21 05/20/21 lisinopril 20 12.5 tablet PO DAILY 05/09/21 05/20/21 mg-hydrochlorothiazide 12.5 mg tablet oxycodone 5 mg tablet 5 mg PO Q4-6H PRN Pain 05/09/21 05/20/21 Allergies Allergy/AdvReac Type Severity Reaction Status Date / Time Penicillins AdvReac Unknown Vomiting Verified 03/17/22 00:00 Review of Systems Review of Systems: CONSTITUTIONAL: Denies fever CARDIOVASCULAR: Denies chest pain, or edema. RESPIRATORY: Denies dyspnea. NEUROLOGIC: Denies headache, numbness, or weakness. All systems reviewed & are unremarkable except as noted in HPI and below PMFSH Past Medical History Medical History (Updated 03/17/22 @ 01:40 by Lisa Chan PA-C) Acute appendicitis Acute appendicitis Degenerative joint disease of elbow Gout Hypertension Lateral epicondylitis Obesity (BMI 30-39.9) [place] (obstructive sleep apnea) Right elbow pain Tobacco abuse Surgical History Surgical History History of knee surgery History of laparoscopic appendectomy 05/09/21 Previous back surgery Family History Family History Other Family history of arthritis Social History Social History Smoking status: Former smoker Alcohol intake: never Gender identity (if verbalized by the patient): Male Exam Narrative: GENERAL: Well-appearing, well-nourished, and in no acute distress. HEAD: Normocephalic, atraumatic. EYES: PERRLA and EOMI. ENT: Nares clear, no rhinorrhea or epistaxis. Mucous membranes moist. Oropharynx without tonsillar hypertrophy exudate or other lesions CHEST: Clear to auscultation. No respiratory distress. No wheezes rales or rhonchi HEART: Regular rate and rhythm. No murmur heard. Normal peripheral pulses. EXTREMITIES: Normal range of motion. No edema. SKIN: Warm, dry, no rash. NEURO: No focal deficits. Alert and oriented x3. PSYCH: Normal mood and affect Course Vital Signs Vital signs: Vital Signs Temperature 98.0 F 03/16/22 23:51 Pulse Rate 57 L 03/16/22 23:51 Respiratory Rate 14 03/16/22 23:51 Blood Pressure 149/81 H 03/16/22 23:51 Pulse Oximetry 99 03/16/22 23:51 Oxygen Delivery Room Air 03/16/22 23:51 Temperature 98.4 F 03/16/22 23:56 Pulse Rate 50 L 03/17/22 01:32 Respiratory Rate 22 H 03/17/22 01:32 Blood Pressure 111/73 03/17/22 01:32 Pulse Oximetry 97 03/17/22 01:32 Oxygen Delivery Room Air 03/16/22 23:56 MDM - Recheck/Abnormal Lab/Rx MDM Narrative Medical decision making narrative: Patient presents the emergency department for elevated blood pressure. He denies any current symptoms. His blood pressure is 140s systolic upon arrival. This down trended to 111/73 without intervention. CBC without concerning findings. Metabolic panel with likely kidney function around baseline. EKG without acute changes and baseline troponin is negative. Chest x-ray without acute cardiopulmonary abnormality. Patient was updated on case findings. He was instructed to continue to monitor his blood pressure and follow-up with hi
[2022-03-17 01:05] LABS: Basophils Percent Auto 0.4 % (0.2-1.2); Eosinophils Absolute Auto 0.1 K/mm3 (0-0.3); Eosinophils Percent Auto 1.9 % (0-4.4); Hematocrit 42.7 % (42.0-52.0); Hemoglobin 12.8 g/dL (14.0-18.0); Immature Granulocyte Absolute 0.03 K/mm3 (0.00-0.031); Immature Granulocyte Percent A 0.4 % (0-0.5); Lymphocytes Absolute Auto 2.37 K/mm3 (0.9-3.2); Lymphocytes Percent Auto 33.8 % (18.3-44.2); Mean Corpuscular Hemoglobin 27.9 pg (26-34); Mean Platelet Volume 12.6 fl (7.4-10.4); Monocytes Absolute Auto 0.6 K/mm3 (0.1-0.6); Monocytes Percent Auto 9.1 % (2.6-8.5); Neutrophils Absolute Auto 3.8 K/mm3 (1.3-6.7); Neutrophils Percent Auto 54.4 % (45.5-73.1); Platelet Count Result 165 k/mm3 (150-375); Red Blood Count 4.59 M/mm3 (4.6-6.20); Red Cell Distribution Width 15.4 % (11.5-14.5)
[2022-03-17 01:16] LABS: INR 1.1; Partial Thromboplastin Time 28.5 SECONDS (22.3-36.8); Prothrombin Time 13.4 Seconds (11.1-14.7)
[2022-03-17 01:20] LABS: Alanine Aminotransferase 11 U/L (6-50); Albumin Level 4.1 g/dL (3.5-5.1); Alkaline Phosphatase 69 U/L (38-126); Anion Gap 12 mmol/L (8-16); Aspartate Amino Transferase 18 U/L (17-59); Bilirubin,Total 0.4 mg/dL (0.2-1.3); Blood Urea Nitrogen 29 mg/dL (9-20); Calcium 8.7 mg/dL (8.4-10.2); Carbon Dioxide 28 mmol/L (22-30); Chloride 103 mmol/L (98-107); Estimated CRCL calculation 50 ml/min; Estimated Glomerular Filt Rate 50; Glucose 92 mg/dL (65-110); Potassium 4.2 mmol/L (3.4-5.0); Sodium 143 mmol/L (137-145)
[2022-03-17 01:31] LABS: Troponin I 0.018 ng/mL (0.000-0.034)
[2022-03-17 01:32] VITALS: BP 111/73; PULSE 50; RESP 22; O2SAT 97
[2022-03-17 02:14] VITALS: BP 113/83; PULSE 51; RESP 16; O2SAT 97
== END 2022-03-17 02:14 | disposition home or self-care (01) ==
PROVIDERS: Emergency Provider Emergency Medicine; PCP Nurse Practitioner Adult Health
DX: I10 Essential (primary) hypertension (principal); M10.9 Gout, unspecified; M19.029 Primary osteoarthritis, unspecified elbow; G47.33 Obstructive sleep apnea (adult) (pediatric); E66.9 Obesity, unspecified; Z68.37 Body mass index [BMI] 37.0-37.9, adult; Z87.891 Personal history of nicotine dependence; R00.1 Bradycardia, unspecified; R94.31 Abnormal electrocardiogram [ECG] [EKG]
CPT/HCPCS: 36415; 71046; 80053; 84484; 85025; 85610; 85730; 93005; 99284

== ENCOUNTER 2022-07-16 13:19 | Emergency (ER) | payer MEDICARE, MEDICAID, SELFPAY ==
--- NOTE | ~2022-07-16 | XR_ITS ---
XR elbow RT min 3V 07/16/2022 13:41 Indication: 5 views right elbow Procedure: 4 views right elbow Comparison: 06/23/2021 Findings: There is a nondisplaced radial head fracture. There is a joint effusion with displacement o f the fat pads. There is mild osteoarthritis of the elbow. Impression: 1: Nondisplaced radial head fracture. Reviewed, dictated and finalized at location B. NTAL RUG STRETCHER Impression: 1: Nondisplaced radial head fracture.
[2022-07-16 13:23] VITALS: BP 171/88; PULSE 64; RESP 18; TEMP 36.7; O2SAT 98
[2022-07-16] MEDS: HYDROcodone/acetaminophen (*CRX) 5-325 MG TABLET 1 TAB PO (16:06)
--- NOTE | 2022-07-16 16:11 | ED.EXTPRO ---
HPI - Extremity Problem General Chief complaint: Extremity Problem,Nontraumatic Stated complaint: right arm pain Time Seen by Provider: 07/16/22 15:10 Source: patient Mode of arrival: ambulatory Limitations: no limitations History of Present Illness HPI Narrative: Patient is a 57-year-old with a history of hypertension here with complaints of right elbow pain for last several days however since this morning he states that he has been having increased pain he denies any fall. He states he is unable to even hold his toothbrush. Complaint: joint paint Onset (ago): day(s) Pain Consistency: constant Location: right Quality: constant Radiation: none Relieving factors: movement Associated symptoms: denies other symptoms Related Data Home Medications Medication Instructions Recorded Confirmed cefadroxil 500 mg capsule 500 mg PO BID 05/09/21 05/20/21 gabapentin 300 mg capsule 300 mg PO BID 05/09/21 05/20/21 lisinopril 20 12.5 tablet PO DAILY 05/09/21 05/20/21 mg-hydrochlorothiazide 12.5 mg tablet oxycodone 5 mg tablet 5 mg PO Q4-6H PRN Pain 05/09/21 05/20/21 Allergies Allergy/AdvReac Type Severity Reaction Status Date / Time Penicillins AdvReac Unknown Vomiting Verified 03/17/22 00:00 Review of Systems Review of Systems: All systems reviewed & are unremarkable except as noted in HPI and below Constitutional: Constitutional: Reports no additional constitutional complaints Eyes: Eyes: Reports no additional eye complaints ENT: Reports system reviewed and no additional complaints, except as documented Cardiovascular: Cardiovascular: Reports no additional cardiovascular complaints Respiratory: Respiratory: Reports no additional respiratory complaints Gastrointestinal: Gastrointestinal: Reports no additional gastrointestinal complaints Musculoskeletal: Musculoskeletal: Reports as per HPI Integumentary/Breasts: Skin/Breast: Reports system reviewed and no additional complaints, except as docu Neurologic: Reports system reviewed and no additional complaints, except as documented PMFSH Past Medical History Medical History Acute appendicitis Acute appendicitis Degenerative joint disease of elbow Gout Hypertension Lateral epicondylitis Obesity (BMI 30-39.9) [place] (obstructive sleep apnea) Right elbow pain Tobacco abuse Surgical History Surgical History History of knee surgery History of laparoscopic appendectomy 05/09/21 Previous back surgery Family History Family History Other Family history of arthritis Social History Social History Smoking status: Former smoker Alcohol intake: never Gender identity (if verbalized by the patient): Male Exam Narrative: GENERAL: Well-appearing, well-nourished, and in no acute distress. HEAD: Normocephalic, atraumatic. EYES: PERRLA and EOMI.. NECK: Supple. CHEST: Clear to auscultation. No respiratory distress. HEART: Regular rate and rhythm. No murmur heard. Normal peripheral pulses. ABDOMEN: Soft, nontender, nondistended, normal active bowel sounds. EXTREMITIES: Examination of the right elbow has mild tenderness on the lateral epicondyle area, painful range of motion. He is unable to supinate or pronate SKIN: Warm, dry, no rash. NEURO: No focal deficits. Alert and oriented x3. PSYCH: Normal mood and affect. Course Course Emergency Course: Discussed x-ray findings with the patient he denies any trauma however the x-ray shows nondisplaced fracture Vital Signs Vital signs: Vital Signs Temperature 36.7 C 07/16/22 13:23 Pulse Rate 64 07/16/22 13:23 Respiratory Rate 18 07/16/22 13:23 Blood Pressure 171/88 H 07/16/22 13:23 Pulse Oximetry 98 07/16/22 13:23 Oxygen Delivery Room Air 07/16/22 13:23 Temperature 36.7 C
[2022-07-16 17:00] VITALS: BP 155/101; PULSE 60; RESP 16; O2SAT 99
== END 2022-07-16 17:00 | disposition home or self-care (01) ==
PROVIDERS: Emergency Provider Family Medicine; PCP Internal Medicine
DX: S52.124A Nondisplaced fracture of head of right radius, initial encounter for closed fracture (principal); I10 Essential (primary) hypertension; M19.029 Primary osteoarthritis, unspecified elbow; M10.9 Gout, unspecified; E66.9 Obesity, unspecified; Z68.39 Body mass index [BMI] 39.0-39.9, adult; G47.33 Obstructive sleep apnea (adult) (pediatric); Z87.891 Personal history of nicotine dependence; X58.XXXA Exposure to other specified factors, initial encounter
CPT/HCPCS: 29105; 73080; 99284; A4565; A9270

== ENCOUNTER 2022-07-25 19:47 | Observation (INO) | payer MEDICARE, MEDICAID, SELFPAY ==
--- NOTE | ~2022-07-25 | XR_ITS ---
EXAMINATION: XR foot RT min 3V DATE: 07/25/2022 20:42 INDICATION: Right foot pain and swelling TECHNIQUE: Dorsoplantar, lateral, and 2 oblique views of the right foot were obtained. COMPARISON: 11/17/2016 FINDINGS: There is diffuse soft tissue swelling of the foot. Bone alignment is normal. No fracture is identified. There is mild osteoarthritis at the first metatarsophalangeal joint as well as in multip le interphalangeal joints. Mild osteoarthritis is also noted in the midfoot. Calcified atherosclerosi s is noted. IMPRESSION: 1. Soft tissue swelling and polyarticular osteoarthritis without acute osseous findings. Reviewed, dictated and finalized at location F. [employer]
--- NOTE | ~2022-07-25 | US_ITS ---
EXAMINATION: US venous doppler LE RT DATE: 07/26/2022 11:36 INDICATION: Right lower limb pain and swelling. TECHNIQUE: Grayscale ultrasound images without and with compression and Doppler ultrasound images of the right lower extremity veins were obtained. COMPARISON: None. FINDINGS: The visualized portions of right common femoral vein, profunda (deep) femoral vein, femoral vein, pop liteal vein, peroneal veins, posterior tibial veins, and greater saphenous vein outflow are patent. IMPRESSION: 1. No deep venous thrombosis. Reviewed, dictated and finalized at location A. TY PARLOR CLEANER
--- NOTE | ~2022-07-25 | XR_ITS ---
EXAMINATION: XR elbow RT min 3V DATE: 07/26/2022 10:41 INDICATION: Right radial head fracture and pain. TECHNIQUE: 4 views of right elbow were obtained. COMPARISON: Radiographs 07/16/2022 FINDINGS: Bone alignment is normal. No fracture. There is moderate elbow joint osteoarthritis. No elb ow joint effusion. IMPRESSION: 1. Moderate elbow joint osteoarthritis. Reviewed, dictated and finalized at location A. ECT ESTIMATOR
--- NOTE | ~2022-07-25 | MR_ITS ---
EXAMINATION: MR foot RT wo con DATE: 07/26/2022 16:27 INDICATION: Right foot pain and swelling. TECHNIQUE: Magnetic resonance imaging (MRI) of the right foot was performed without intravenous contr ast. COMPARISON: Right foot radiographs 07/25/2022 FINDINGS: There is moderate hallux valgus. There is hyperextension of the metatarsophalangeal joints and flexion of the interphalangeal joints. No acute fracture. There is an old fracture of anterior pr ocess of calcaneus. There is no evidence of osteomyelitis. There is severe osteoarthritis of second t arsometatarsal joint and mild to moderate osteoarthritis of many of the midfoot joints and interphala ngeal joints. There is moderate osteoarthritis of first metatarsophalangeal joint. There is soft tiss ue edema in the foot. There is mild fatty atrophy of much of the musculature. IMPRESSION: 1. Moderate hallux valgus. 2. Polyarticular osteoarthritis. Reviewed, dictated and finalized at location A. LEAK INSPECTOR
[2022-07-25 19:48] VITALS: BP 163/98; PULSE 86; RESP 18; TEMP 36.7; O2SAT 95
[2022-07-26] VITALS (17 sets, daily range): BP systolic 117–164; BP diastolic 70–110; PULSE 62–89; RESP 14–20; TEMP 35.6–36.6; O2SAT 91–100; BMI 40.0
[2022-07-26] MEDS: HYDROcodone/acetaminophen (*CRX) 5-325 MG TABLET 1 TAB PO (01:56)
[2022-07-26 01:57] LABS: Basophils Percent Auto 0.2 % (0.2-1.2); Eosinophils Absolute Auto 0.1 K/mm3 (0-0.3); Eosinophils Percent Auto 0.7 % (0-4.4); Hematocrit 43.8 % (42.0-52.0); Hemoglobin 13.2 g/dL (14.0-18.0); Immature Granulocyte Absolute 0.02 K/mm3 (0.00-0.031); Immature Granulocyte Percent A 0.2 % (0-0.5); Lymphocytes Absolute Auto 1.16 K/mm3 (0.9-3.2); Mean Corpuscular HGB Conc 30.1 g/dl (32-36); Mean Corpuscular Volume 89.8 fl (80-100); Mean Platelet Volume 11.3 fl (7.4-10.4); Monocytes Absolute Auto 0.7 K/mm3 (0.1-0.6); Monocytes Percent Auto 7.3 % (2.6-8.5); Neutrophils Percent Auto 78.6 % (45.5-73.1); Platelet Count Result 217 k/mm3 (150-375); Red Blood Count 4.88 M/mm3 (4.6-6.20); Red Cell Distribution Width 14.6 % (11.5-14.5); White Blood Count 8.9 K/mm3 (4.5-10.0)
--- NOTE | 2022-07-26 02:05 | ED.EXTPRO ---
HPI - Extremity Problem General Chief complaint: Extremity Problem,Nontraumatic Stated complaint: swollen right foot onset 2 days ago Time Seen by Provider: 07/26/22 00:34 Source: patient Mode of arrival: EMS Limitations: no limitations History of Present Illness HPI Narrative: Patient is a 57-year-old male who presents to the ED with report of right foot pain and swelling. Patient reports he noticed the pain on his right lateral foot 2 days ago. Pain has since persisted and spread throughout his right foot. He also noticed swelling 2 days ago which has since extended up his lower leg. Patient denies any injury or fall. He denies known history of gout or CHF. His records do indicate a previous history of gout, however patient denies this. No wounds. No fevers. No chest pain or shortness of breath. Patient was unable to ambulate on the right foot, so EMS was called to bring him here today. Patient has not tried anything for pain prior to arrival. Related Data Home Medications Medication Instructions Recorded Confirmed cefadroxil 500 mg capsule 500 mg PO BID 05/09/21 05/20/21 gabapentin 300 mg capsule 300 mg PO BID 05/09/21 05/20/21 lisinopril 20 12.5 tablet PO DAILY 05/09/21 05/20/21 mg-hydrochlorothiazide 12.5 mg tablet oxycodone 5 mg tablet 5 mg PO Q4-6H PRN Pain 05/09/21 05/20/21 Allergies Allergy/AdvReac Type Severity Reaction Status Date / Time Penicillins AdvReac Unknown Vomiting Verified 07/26/22 00:50 Review of Systems Review of Systems: CONSTITUTIONAL: Denies fever, chills, or sweats. CARDIOVASCULAR: Denies chest pain. RESPIRATORY: Denies dyspnea. SKIN: See HPI. MUSCULOSKELETAL: See HPI. NEUROLOGIC: Denies tingling, numbness, or weakness. All systems reviewed & are unremarkable except as noted in HPI and below PMFSH Past Medical History Medical History Acute appendicitis Acute appendicitis Degenerative joint disease of elbow Gout Hypertension Lateral epicondylitis Obesity (BMI 30-39.9) [place] (obstructive sleep apnea) Right elbow pain Tobacco abuse Surgical History Surgical History History of knee surgery History of laparoscopic appendectomy 05/09/21 Previous back surgery Family History Family History Other Family history of arthritis Social History Social History Smoking status: Former smoker Alcohol intake: never Gender identity (if verbalized by the patient): Male Exam Narrative: GENERAL: Well appearing, morbidly obese, non-toxic, in no acute distress. HEAD: Normocephalic, atraumatic. NECK: Supple. No adenopathy, no masses. RESPIRATORY: Airway patent, respirations nonlabored. Clear to auscultation bilaterally, no rales, rhonchi, wheezing. CARDIOVASCULAR: Regular rate and rhythm without murmurs, rubs, or gallops. Pedal pulses 2+ and equal bilaterally. MUSCULOSKELETAL: Limited range of motion of right foot/ankle due to pain. Tenderness to palpation diffusely throughout right foot, including MTP joints, pain with bending of toes, throughout ankle joint. Moderate amount of swelling noted to dorsum of right foot with some erythema and warmth present as well. Swelling of right lower leg, 1+ pitting edema compared to left leg. No swelling noted to left leg or foot. No redness or warmth. No wounds. SKIN: Warm, dry, normal color. No rashes. NEURO: A&O X3. Speech clear. Cranial nerves II-XII grossly intact. No ataxic movements. PSYCHIATRIC: Appropriate mood and affect. Normal interaction. Course Vital Signs Vital signs: Vital Signs Temperature 98.1 F 07/25/22 19:48 Pulse Rate 86 07/25/22 19:48 Respiratory Rate 18 07/25/22 19:48 Blood Pressure 163/98 H 07/25/22 19:48 Pulse Oximetry 95 07/25/22 19:48 Oxygen Delivery
[2022-07-26 02:12] LABS: Alanine Aminotransferase 14 U/L (6-50); Albumin Level 4.6 g/dL (3.5-5.1); Alkaline Phosphatase 92 U/L (38-126); Anion Gap 9 mmol/L (8-16); Aspartate Amino Transferase 21 U/L (17-59); Bilirubin,Total 0.8 mg/dL (0.2-1.3); Blood Urea Nitrogen 23 mg/dL (9-20); Calcium 9.7 mg/dL (8.4-10.2); Carbon Dioxide 30 mmol/L (22-30); Chloride 101 mmol/L (98-107); Estimated CRCL calculation 67 ml/min; Estimated Glomerular Filt Rate > 60; Glucose 99 mg/dL (65-110); Potassium 3.8 mmol/L (3.4-5.0); Sodium 140 mmol/L (137-145)
[2022-07-26 02:20] LABS: NT Pro B Type Natriuretic Pept 325 pg/mL (19.9-100)
[2022-07-26 02:23] LABS: D Dimer 2.28 ug/mL (<0.48)
[2022-07-26] MEDS: ENOXAPARIN 100 MG/ML SYRINGE SUB-Q (02:52)
[2022-07-26] MEDS: oxyCODONE/ACETAMINOPHEN (*CRX) 5-325 MG TABLET 1 TABLET PO (03:15)
[2022-07-26 04:25] LABS: Appearance Urine Clear (Clear); Bacteria Urine None Seen /hpf; Bilirubin Urine Negative (Negative); Blood Urine Negative (Negative); Color Urine Yellow (Yellow); Glucose Urine UA Negative (Negative); Ketones Urine Negative (Negative); Leukocyte Esterase Ur Negative LEU/UL (Negative); Nitrate Urine Negative (Negative); Non Pathogenic Casts 0-2; Protein Urine 2+ mg/dL (Negative); RBC Urine 0-2 /hpf (0-2); Squamous Epithelial Cell Urine None seen /hpf (Few); WBC Urine 0-5 /hpf; pH Urine 5.5 (5.0-9.0)
[2022-07-26 04:30] LABS: CRP 5.8 mg/dL (<1.0); Uric Acid 10.6 mg/dL (3.5-8.5)
[2022-07-26 04:38] LABS: Amphetamine Screen Urine Negative (Negative); Barbiturate Screen Urine Negative (Negative); Benzodiazepines Screen Urine Negative (Negative); Cannabinoid Screen Urine Positive (Negative); Cocaine Screen Urine Negative (Negative); Methadone Screen Urine Negative (Negative); Opiate Screen Urine Positive (Negative); Phencyclidine Screen Urine Negative (Negative)
[2022-07-26 04:58] LABS: Add Urine Microscopic? YES
--- NOTE | 2022-07-26 05:03 | ADMGEN ---
This patient, Gerry Francis, was admitted to Medical Room 243-01. Patient/family oriented to hospital policies and general routines including ID bracelet, bed and alarms, visiting hours, pain management, procedures, bathroom and other care routines, personal items, smoking policy, room service/diet, and visiting hours. Information on how to activate the Rapid Response Team has been discussed. Patient/Family are encouraged to report perceived risks to care and to ask questions if they do not understand what they are told or what they should do.
[2022-07-26 05:15] LABS: Erythrocyte Sedimentation Rate 49 mm/hr (0-20)
--- NOTE | 2022-07-26 09:26 | PM.IMHP ---
H&P: HPI History of Present Illness Date/Time: 07/26/22 09:26 Chief Complaint: Right foot pain Narrative: 57yo male with untreated [place], HTN and obesity here for right foot pain. Patient on July 16 present to the emergency room with complaints of 2 day history of right elbow pain. He denies any trauma but x-ray shows nondisplaced radial head fracture. Patient was given [place]. Was placed in the sling. He was discharged with plans to follow-up with orthopedics. The appointment actually scheduled for today. Patient states his elbow pain has all but resolved. He has not been using the sling very much. He was doing well until about 2-3 days ago when he developed right foot pain. No trauma to the right foot. No open areas. He had noted swelling, redness and pain to the top part of his right foot. His toes were numb initially but that resolved. His ankle is not involved. He has pain when he steps on the right foot. He had similar episode happen couple years ago to the left foot. On chart review, this occurred in 2017. He had a suspicion for an evulsion fracture to the left foot but also concern for gout that patient stated at that time was a questionable diagnosis in 2015. He denies history of gout at this time. He did have right knee pain and swelling in 2019 but unable to obtain fluid with arthrocentesis. He was diagnosed with right knee osteoarthritis and subsequently had a Rt TKA April 2021. He has not been on antibiotics recently. He denies fever, chills, chest pain, palpitations, shortness of breath, cough, nausea, vomiting, dysuria, hematuria. No history of STDs. Because of the increasing pain, patient was brought in by EMS. In the ED, blood pressure was elevated 164/110 . Blood pressure improved. He was afebrile. White count was normal. D-dimer is elevated 2.3. BUN 23 and creatinine 1.3. BNP was 325. LFTs were normal. Right foot x-ray shows soft tissue swelling and polyarticular osteoarthritis without acute osseous findings. ESR is 49. Uric acid is 10.6. CRP 5.8. Urinalysis showed 2+ protein. Urine drug screen is positive for opiates and cannabis it is. He did receive [place] a few hours prior to this urine drug screen being drawn. was given narcotics for pain. He was given 1 dose of Lovenox with plans for Doppler ultrasound this morning. He was admitted for further care. It should be mentioned that the plan was for discharge but patient could not ambulate even with crutches. Review of Systems Review of Systems: All systems reviewed & are unremarkable except as noted in HPI and below PMFSH Past Medical History Medical History (Updated 07/26/22 @ 09:56 by David Currie MD) Acute appendicitis Acute appendicitis Degenerative joint disease of elbow Gout Hypertension Lateral epicondylitis Obesity (BMI 30-39.9) [place] (obstructive sleep apnea) intolerant to CPAP Right elbow pain Tobacco abuse Surgical History Surgical History History of knee surgery Rt TKA Apr 2021 History of laparoscopic appendectomy 05/09/21 Previous back surgery Family History Family History Other Family history of arthritis Social History Social History (Updated 07/26/22 @ 09:51 by David Currie MD) Social History: Patient smoked less than pack a day but he cannot tell me for how long he smoked. Believes he quit about 10 years ago. He smokes 2 marijuana joints per day. He denies any history of other drug use including IV drug use. No other drug use currently. Denies alcohol use. Lives with his girlfriend, Jenny Platt. He is on disability because of right knee pain. He has 2 cats and 1 dog. He is full code. He nominates his girlfriend to be the individual would make medical decisions for him if he is unable. Smoking status: Former smoker Alcohol intake: never Substance use: current
--- NOTE | 2022-07-26 09:38 | PCOTNOTE ---
Attempted to see pt. for occupational therapy evaluation. DVT has not been ruled out at this time and pt. is not currently medicated for this condition. Waiting for testing due to safety concerns. Nursing aware. Following.
--- NOTE | 2022-07-26 11:18 | PCPTNOTE ---
Attempted to see pt. for physical therapy evaluation. DVT has not been ruled out at this time. Waiting for testing due to safety concerns. Nursing aware. Following.
--- NOTE | 2022-07-26 11:57 | PM.CNOR ---
History of Present Illness HPI Consult date: 07/26/22 Chief complaint: rle pain/swelling,elevated dimer,unable to ambulat Narrative: 57-year-old male who we are asked to evaluate for his right elbow and right foot pains. His right elbow became painful spontaneously or him on 07/14. He noted that his elbow was difficult to flex and extend. It was painful and he points at the lateral condyle we filled pain. He had no prior injuries or trauma or overuse of the right hand. He has had no falls. He has had lateral epicondylitis in the past and has had cortisone injections. He was seen in the ER here on 07/16 and x-rays were done. They show no definite evidence of fracture. He did have osteoarthritis the elbow. Also had effusion. He is placed into a splint. He subsequently removed the splint about 5 days ago at home. He states he is having no symptoms in the right elbow at this time. Patient had new x-rays of the elbow done today which showed no definite evidence of fracture. Patient's 2nd complaint is that 2 days ago he woke up with spontaneous pain and swelling in the right foot. He thinks he had a similar episode in left foot sometime in the past. Hospitalist note states that this was most likely 2017. Patient had no injury trauma to the right foot. When he went to bed it was little bit sore when he woke up the next morning it was swollen painful and he was unable to bear weight on it. He was admitted to hospital due to the fact he is unable bear weight. Labs on admission -his uric acid was 10.2, C-reactive was 5.8 and his sed rate was 49. Patient x-rays of the foot which show some mild arthritic changes in the midfoot. Patient is a history of total knee arthroplasty in the right knee that was done in [place] in the past. Physical exam 57-year-old male alert pleasant. He has full range of motion the right elbow without any discomfort. Full pronation supination without discomfort. 2+ radial pulse. His right knee has no effusion he has full range of motion without discomfort. He has trace swelling in the ankle and [id number] swelling in the the foot. The foot is warm to the touch. 2+ dorsalis pedis pulse. He complains of no numbness and tingling in the feet. Skin is all intact around the foot and ankle. There is no redness or warmth in the ankle more in the calf. Impression: 57-year-old male who has right elbow seems to have improved very quickly. He did have 1 x-ray that was suspicious for radial head fracture fracture but he did not have any trauma or falls. He has full range of motion of the right elbow today without any discomfort. He does have some mild to moderate osteoarthritis in the elbow which may have been symptomatic at time. Patient's 2nd complaint of the swelling and pain in the right foot -differential diagnosis would be gout as well as possible infection. Due to the fact that he has a total knee arthroplasty above this foot we will need to rule out infection. I have ordered an MRI scan of his foot to be done today. I am going to put him on prednisone, if this is a gout attack this should help quite a bit. We will hold off on antibiotics at this time until the MRI scan is done. [facility] Past Medical History Medical History (Updated 07/26/22 @ 09:56 by David Currie MD) Acute appendicitis Acute appendicitis Degenerative joint disease of elbow Gout Hypertension Lateral epicondylitis Obesity (BMI 30-39.9) ORVILLE (obstructive sleep apnea) intolerant to CPAP Right elbow pain Tobacco abuse Surgical History Surgical History History of knee surgery Rt TKA Apr 2021 History of laparoscopic appendectomy 05/09/21 Previous back surgery Family History Family History Other Family history of arthritis Social History Social History (Updated 07/26/22 @ 09:51 by David Currie MD) Social History
[2022-07-26] MEDS: amLODIPine BESYLATE 5 MG TABLET PO (11:58)
[2022-07-26] MEDS: MELOXICAM 7.5 MG TABLET 15 MG PO (11:58)
[2022-07-26] MEDS: lisinopriL 20 MG TABLET PO (11:59)
[2022-07-26] MEDS: PANTOPRAZOLE 40 MG TABLET PO (11:59)
[2022-07-26] MEDS: GABAPENTIN 300 MG CAPSULE PO ×2 (11:59→16:37)
[2022-07-26] MEDS: hydroCHLOROthiazide 12.5 MG CAPSULE PO (11:59)
[2022-07-26 12:01] LABS: Thyroid Stimulating Hormone Reflex 0.777 uIU/mL (0.465-4.68)
[2022-07-26] MEDS: TRIAMCINOLONE ACET INJ 40 MG/ML VIAL 60 MG IM (12:02)
[2022-07-26 12:06] LABS: Rheumatoid Factor < 12.0 IU/ML (<12)
[2022-07-26 12:09] LABS: Vitamin D 25 Hydroxy < 12.8 ng/mL
[2022-07-26] MEDS: oxyCODONE HCL (*CRX) 5 MG TAB IR PO ×3 (12:15→20:27)
[2022-07-26 12:38] LABS: Total Protein Urine Random 59 mg/dL
[2022-07-26] MEDS: methylPREDNISolone (MEDROL) DOSEPACK 4 MG TABLETS PO ×4 (12:47→20:27)
[2022-07-26] MEDS: ACETAMINOPHEN 500 MG TABLET 1000 MG PO ×2 (12:48→18:04)
[2022-07-26 12:49] LABS: Creatinine Urine 110.5 mg/dL; Ur Ttl Prot Creatinine Ratio 0.53 mg/mg (0-0.20)
[2022-07-27] MEDS: ACETAMINOPHEN 500 MG TABLET 1000 MG PO ×4 (00:18→17:43)
[2022-07-27] MEDS: oxyCODONE HCL (*CRX) 5 MG TAB IR PO ×5 (00:19→17:42)
[2022-07-27 03:53] VITALS: BP 166/93; PULSE 51; RESP 18; TEMP 36.2; O2SAT 97
[2022-07-27] MEDS: methylPREDNISolone (MEDROL) DOSEPACK 4 MG TABLETS PO ×3 (06:21→17:43)
--- NOTE | 2022-07-27 07:51 | PM.PNORT ---
Subjective Subjective Date/Time Seen: 07/27/22 07:51 Patient had MRI scan yesterday which showed arthritic changes in the midfoot. No evidence infection. His right foot this morning is doing significantly better. Swelling is down to just trace bit of swelling. the warmth in the foot is gone away. Patient states that he has almost no pain at this point in the foot since starting on the Medrol Dosepak yesterday. I will order therapy to get him up walking at this point. I think once he is comfortable ambulating again he can be discharged home. He will need follow-up with a primary care doctor to have medicine for his gout so that he avoids attacks in the future. I did discuss this with him as well. Objective Data Vital Signs Vital Signs: Vital Signs - 24 hr 07/26/22 08:35 07/26/22 14:54 07/26/22 19:58 Temperature 35.6 C L 36.1 C L Pulse Rate 70 62 Respiratory Rate 20 16 20 Blood Pressure 117/72 142/84 H Pulse Oximetry 100 91 97 Oxygen Delivery Room Air 07/26/22 20:15 07/27/22 03:53 Temperature 36.2 C L Pulse Rate 51 L Respiratory Rate 18 Blood Pressure 166/93 H Pulse Oximetry 97 Oxygen Delivery Room Air Intake/Output Intake/Output: Intake & Output 07/24/22 07/25/22 07/26/22 07/27/22 23:59 23:59 23:59 23:59 Intake Total 1560 490 Output Total 1475 500 Balance 85 -10 Meds/Results Medications: Active Medications Generic Name Dose Route Start Last Admin Trade Name Bayronq PRN Reason Stop Dose Admin Acetaminophen 1,000 mg 07/26/22 12:35 07/27/22 06:21 Acetaminophen 500 Mg Tablet PO 1,000 mg Q6H DIONICIO Administration Amlodipine Besylate 5 mg 07/26/22 10:35 07/26/22 11:58 Amlodipine Besylate 5 Mg Tablet PO 5 mg DAILY DIONICIO Administration Enoxaparin Sodium 40 mg 07/27/22 09:00 Enoxaparin 40 Mg/0.4 Ml Syringe SUB-Q DAILY DIONICIO Gabapentin 300 mg 07/26/22 10:35 07/26/22 16:37 Gabapentin 300 Mg Capsule PO 300 mg BID DIONICIO Administration Hydrochlorothiazide 12.5 mg 07/26/22 09:00 07/26/22 11:59 Hydrochlorothiazide 12.5 Mg Capsule PO 12.5 mg DAILY DIONICIO Administration Cefazolin Sodium 1 gm/ Sodium 100 mls @ 200 mls/hr 07/26/22 12:00 07/27/22 06:52 Chloride IVPB 07/27/22 22:29 Infused Q8HR DIONICIO Infusion Cefazolin Sodium 1 gm in 50 mls @ 100 mls/hr 07/28/22 06:00 Ancef 1 Gm/Ns 50 Ml IVPB Q8HR DIONICIO Lisinopril 20 mg 07/26/22 09:00 07/26/22 11:59 Lisinopril 20 Mg Tablet PO 08/26/22 08:59 20 mg DAILY DIONICIO Administration Meloxicam 15 mg 07/26/22 12:00 07/26/22 11:58 Meloxicam 7.5 Mg Tablet PO 15 mg DAILY@0800 DIONICIO Administration Methylprednisolone 4 mg 07/26/22 06:30 07/27/22 06:21 Methylprednisolone (Medrol) Dosepack 4 Mg Tablets PO 07/31/22 07:29 4 mg 0630,1200,1700 DIONICIO Administration Taper Oxycodone HCl 5 mg 07/26/22 11:55 07/27/22 04:37 Oxycodone Hcl (*Crx) 5 Mg Tab Ir PO 5 mg Q4H DIONICIO Administration Oxycodone HCl 5 mg 07/26/22 11:54 Oxycodone Hcl (*Crx) 5 Mg Tab Ir PO Q4H PRN Pain Rated 7-10 Pantoprazole Sodium 40 mg 07/26/22 09:00 07/26/22 11:59 Pantoprazole 40 Mg Tablet PO 08/26/22 08:59 40 mg DAILY DIONICIO Administration Radiology Results: ITS Impressions Foot X-Ray 07/25/22 21:08 IMPRESSION: 1. Soft tissue swelling and polyarticular osteoarthritis without acute osseous findings. Elbow X-Ray 07/26/22 11:02 IMPRESSION: 1. Moderate elbow joint osteoarthritis. Venous Doppler Study 07/26/22 11:50 IMPRESSION: 1. No deep venous thrombosis. Foot MRI 07/26/22 16:29 IMPRESSION: 1. Moderate hallux valgus. 2. Polyarticular osteoarthritis. Labs Labs: Laboratory Results - last 24 hr 07/26/22 07/26/22 07/26/22 04:12 04:12 04:12 Vitamin D 25-Hydroxy < 12.8 TSH (Reflex) 0.777 U Random Total Protein Urine Creatinine Protein/Creat Ratio 2 Rheumatoid Factor < 12.0 07/26/22 12:16 Vit
[2022-07-27] MEDS: MELOXICAM 7.5 MG TABLET 15 MG PO (08:27)
[2022-07-27] MEDS: hydroCHLOROthiazide 12.5 MG CAPSULE PO (08:28)
[2022-07-27] MEDS: GABAPENTIN 300 MG CAPSULE PO ×2 (08:28→17:43)
[2022-07-27] MEDS: amLODIPine BESYLATE 5 MG TABLET PO (08:28)
[2022-07-27] MEDS: lisinopriL 20 MG TABLET PO (08:28)
[2022-07-27] MEDS: PANTOPRAZOLE 40 MG TABLET PO (08:29)
[2022-07-27] MEDS: ENOXAPARIN 40 MG/0.4 ML SYRINGE SUB-Q (08:29)
[2022-07-27 14:00] VITALS: BP 140/79; PULSE 60; RESP 16; TEMP 37.3; O2SAT 96
--- NOTE | 2022-07-27 16:01 | PM.DS ---
DS: Admitting Diagnosis Discharge Date 07/27/22 Admitting Diagnosis Right foot pain DS: Discharge Diagnosis Discharge Diagnosis (1) Right foot pain: Code(s): M79.671 - Pain in right foot Status: Acute (2) Elevated d-dimer: Code(s): R79.89 - Other specified abnormal findings of blood chemistry Status: Acute (3) Unable to ambulate: Code(s): R26.2 - Difficulty in walking, not elsewhere classified Status: Acute (4) Right radial head fracture: Code(s): S52.121A - Displaced fracture of head of right radius, initial encounter for closed fracture Status: Acute (5) ORVILLE (obstructive sleep apnea): Code(s): G47.33 - Obstructive sleep apnea (adult) (pediatric) Status: Acute (6) Hypertension: Code(s): I10 - Essential (primary) hypertension Status: Acute (7) Marijuana abuse: Code(s): F12.10 - Cannabis abuse, uncomplicated Status: Acute (8) Vitamin D deficiency: Code(s): E55.9 - Vitamin D deficiency, unspecified Status: Acute DS: Summary Hospital Course Reason for hospitalization: 57yo male with untreated ORVILLE, HTN and obesity here for right foot pain. Please see H&P for details. Hospital Course: Patient presentw with right foot pain. In the ED, blood pressure was elevated 164/110 .? Blood pressure improved.? He was afebrile.? White count was normal.? D-dimer is elevated 2.3.? BUN 23 and creatinine 1.3.? BNP was 325.? LFTs were normal.? Right foot x-ray shows soft tissue swelling and polyarticular osteoarthritis without acute osseous findings.? ESR is 49.? Uric acid is 10.6.? CRP 5.8.? Urinalysis showed 2+ protein.? Urine drug screen is positive for opiates and cannabis.? He did receive [place] a few hours prior to this urine drug screen being drawn. He was given narcotics for pain.? It was attempted to get him home with plans for discharge but patient could not ambulate even with crutches. Patient was admitted to medical floor. On chart review, patient has had multiple unexplained fractures and multiple joint involvement that has been diagnosed as osteoarthritis. There has not been as successful arthrocentesis to make the definitive diagnosis of gout. Uric acid level elevated at 10.6. Would consider cellulitis in the differential but suspect overall this is probably gout. RF negative. Testosterone level pending. Vit D <12.8. Recommend outpatient bone scan to assess for osteoporosis. We repeated his right elbow x-ray but this was negative for fracture so initial xray last month probably. Orthopedic consulted and appreciate their input. We started antibiotics but stopped since much improvement with steroids. MRI of the right foot showed osteoarthritis. He was given 1 dose of IM Triamcinolone and started on Medrol dose pack. LE venous doppler negative for DVT. Doubt PE since no symptoms of SOB, no tachycardia or hypoxia. Proteinuria noted with protein to Cr ratio of 0.5. PT and OT consulted and patietn did well and even walked stairs. Pain much improved. Patient was educated about the benefits of abstaining from marijuana use. Patient cannot tolerate BiPAP. Encouraged him to follow-up with his doctor about having his ORVILLE re-evaluated since there other devices that he possibly could use. Weight loss was encouraged. Heart healthy diet. He overall did well and was able to be discharged home on 07/27/22. Discharge instructions discussed Status at Discharge Cognitive/behavioral status at discharge: Stable Time Spent with Patient Time attestation: Total time spent providing and/or coordinating discharge services: 34 minutes Time spent: Greater than 30 minutes Exam Narrative: AF 99.1 140/79 60 16 96% ra Gen - NARD Chest - CTA bilaterally CV - RRR S1/S2 Abd - Soft. Nontender. Obese but nondistended. Positive bowel sounds. Ext - 2+ DP pulses bilaterally. Right dorsum of foot with minimal erythematous and edematous. Minimal pain to palp
[2022-07-30 09:28] LABS: Anti Cyclic Citrullinated Pept <16 Units (<20)
== END 2022-07-27 19:08 | disposition home or self-care (01) ==
LOC: ANHED 07-26 03:58 → ANH2MED 07-26 05:49
PROVIDERS: Admitting Provider Internal Medicine; Emergency Provider Physician Assistant; Visit Provider Internal Medicine
DX: M79.671 Pain in right foot (principal); R79.89 Other specified abnormal findings of blood chemistry; M79.89 Other specified soft tissue disorders; R26.2 Difficulty in walking, not elsewhere classified; S52.121A Displaced fracture of head of right radius, initial encounter for closed fracture; G47.33 Obstructive sleep apnea (adult) (pediatric); E55.9 Vitamin D deficiency, unspecified; I10 Essential (primary) hypertension; M77.11 Lateral epicondylitis, right elbow; E66.01 Morbid (severe) obesity due to excess calories; Z68.41 Body mass index [BMI] 40.0-44.9, adult; F12.10 Cannabis abuse, uncomplicated; Z96.651 Presence of right artificial knee joint; Z87.891 Personal history of nicotine dependence; Z79.891 Long term (current) use of opiate analgesic; Z79.899 Other long term (current) drug therapy; Z82.61 Family history of arthritis
CPT/HCPCS: 36415; 73080; 73630; 73718; 80053; 80307; 81001; 82306; 82570; 83880; 84156; 84443; 84550; 85025; 85380; 85652; 86140; 86200; 86430; 93971; 96365; 96366; 96372; 97161; 97165; 97530; 99285; A9270; G0378; J0690; J1650; J3301

== ENCOUNTER 2022-09-13 08:49 | Outpatient (CLI) | payer MEDICARE, MEDICAID, SELFPAY ==
--- NOTE | ~2022-09-13 | US_ITS ---
EXAMINATION: US_VDOPREFBI_US DATE: 09/13/2022 10:09 INDICATION: Left lower limb pain. TECHNIQUE: Grayscale ultrasound images without and with compression and Doppler ultrasound images of the bilateral lower extremity veins were obtained. COMPARISON: Ultrasound 07/26/2022 FINDINGS: The visualized portions of right common femoral vein, profunda (deep) femoral vein, femoral vein, pop liteal vein, peroneal veins, posterior tibial veins, and greater saphenous vein outflow are patent. R ight greater saphenous vein measures 4 mm in the upper thigh, 3 mm in the lower thigh, and 2 mm in th e calf. Right small saphenous vein measures 2 mm in the upper calf and 1 mm in the lower calf. There is no reflux. The visualized portions of left common femoral vein, profunda femoral vein, femoral vein, popliteal v ein, peroneal veins, posterior tibial veins, and greater saphenous vein outflow are patent. Left grea ter saphenous vein measures 3 mm in the upper thigh, 2 mm in the lower thigh, and 2 mm in the calf. L eft small saphenous vein measures 3 mm in the upper calf and 4 mm in the lower calf. No reflux. IMPRESSION: 1. No deep venous thrombosis. 2. No reflux. Reviewed, dictated and finalized at location A.
== END 2022-09-13 08:50 | disposition home or self-care (01) ==
PROVIDERS: PCP Emergency Medicine; Visit Provider Internal Medicine Cardiovascular Disease
DX: R00.1 Bradycardia, unspecified (principal); M19.90 Unspecified osteoarthritis, unspecified site; G47.33 Obstructive sleep apnea (adult) (pediatric); R94.31 Abnormal electrocardiogram [ECG] [EKG]; M79.662 Pain in left lower leg; M10.9 Gout, unspecified; E78.5 Hyperlipidemia, unspecified; I10 Essential (primary) hypertension; Z13.6 Encounter for screening for cardiovascular disorders
CPT/HCPCS: 93970

== ENCOUNTER 2022-09-23 07:36 | Outpatient (CLI) | payer MEDICARE, MEDICAID, SELFPAY ==
--- NOTE | 2022-09-23 | EST_ITS ---
Patient Info Name: Gerry Francis Age: 57 years : 1965 Gender: Male Ht: 67 in Wt: 255 lbs BSA: 2.39 m2 HR: 75 bpm BP: 134 / 85 mmHg Heart Rhythm: Sinus Rhythm Exam Date: 09/23/2022 9:41 AM Exam Location: [facility] Stress Patient Status: Outpatient Admit Date: 09/23/2022 Staff Ordering Physician: PHYSICIAN NOT ON STAFF, NONSTAFF Attending Provider: PHYSICIAN NOT ON STAFF, NONSTAFF Exercise Technologist: Leighann Young CT Nurse: claus lovell Exam Type: CA stress test treadmill Study Info Indications R94.31 - Abnormal electrocardiogram ECG EKG A treadmill exercise stress test was performed. Summary 1. Exercise capacity impaired at <6 METS. 2. Hypertensive blood pressure response with exercise. 3. No abnormal ST/T wave changes diagnostic of ischemia with exercise. Of note, there was baseline motion artifact on EKG during stress portion which limits interpretation. Protocol: Ty Stress ECG Details Stage: REST Duration (min): 0 min : 46 sec Speed (mph): 0.0 Grade (%): 0 HR (bpm): 69 SBP (mmHg): 134 DBP (mmHg): 88 METS: --- Stage: REST Duration (min): 4 min : 47 sec Speed (mph): 0.0 Grade (%): 0 HR (bpm): 81 SBP (mmHg): 134 DBP (mmHg): 88 METS: --- Stage: STAGE 1 Duration (min): 1 min : 0 sec Speed (mph): 1.7 Grade (%): 10 HR (bpm): 117 SBP (mmHg): 134 DBP (mmHg): 88 METS: --- Stage: STAGE 1 Duration (min): 2 min : 0 sec Speed (mph): 1.7 Grade (%): 10 HR (bpm): 129 SBP (mmHg): 134 DBP (mmHg): 88 METS: --- Stage: STAGE 1 Duration (min): 3 min : 0 sec Speed (mph): 1.7 Grade (%): 10 HR (bpm): 137 SBP (mmHg): 200 DBP (mmHg): 127 METS: --- Stage: RECOVERY Duration (min): 0 min : 59 sec Speed (mph): 0.0 Grade (%): 0 HR (bpm): 107 SBP (mmHg): 210 DBP (mmHg): 124 METS: --- Stage: RECOVERY Duration (min): 1 min : 59 sec Speed (mph): 0.0 Grade (%): 0 HR (bpm): 97 SBP (mmHg): 210 DBP (mmHg): 124 METS: --- Stage: RECOVERY Duration (min): 2 min : 59 sec Speed (mph): 0.0 Grade (%): 0 HR (bpm): 95 SBP (mmHg): 161 DBP (mmHg): 114 METS: --- Stage: RECOVERY Duration (min): 3 min : 23 sec Speed (mph): 0.0 Grade (%): 0 HR (bpm): 92 SBP (mmHg): 161 DBP (mmHg): 114 METS: --- Rest HR: 81 bpm Peak HR: 137 bpm Rest Sys BP: 134 mmHg Peak Sys BP: 210 mmHg Max Pred HR: 161 bpm % Max Pred HR: 85 % Target HR: 137 bpm Max RPP: 28,770 bpm*mmHg Vallecillo Score: -3 Target HR Summary: Patient's target heart rate was achieved BP Response: Patient exhibited a hypertensive response with stress Max ST Seg Deviation: 1.30 mm Total Time: 3 min : 0 sec Rest Carlton BP: 88 mmHg Peak Carlton BP: 124 mmHg Angina Score: None Total METS: 4.7 Resting ECG Sinus rhythm with marked sinus arrhythmia. Stress ECG Sinus rhythm. No abnormal ST/T wave changes diagnostic of ischemia with exercise. Of note, there was baseline motion artifact on EKG during stress portion which limits interpretation. Report Signatures Electronically signed by Mike Haque MD on
--- NOTE | 2022-09-23 | ECHO_ITS ---
Patient Info Name: Gerry Francis Age: 57 years : 1965 Gender: Male Ht: 67 in Wt: 250 lbs BSA: 2.37 m2 HR: 67 bpm BP: 148 / 104 mmHg Heart Rhythm: Bradycardia, Sinus Rhythm Exam Date: 09/23/2022 8:13 AM Exam Location: [facility] [place] Patient Status: Outpatient Admit Date: 09/23/2022 Staff Ordering Physician: PHYSICIAN NOT ON STAFF, NONSTAFF Glaze Handler: Cesilia Brennan RDCS Attending Provider: PHYSICIAN NOT ON STAFF, NONSTAFF Exam Type: CA echo doppler color flow Study Info Indications R00.1 - Bradycardia, unspecified Complete two-dimensional, color flow and Doppler transthoracic echocardiogram is performed. Summary 1. Complete two-dimensional, color flow and Doppler transthoracic echocardiogram is performed. 2. Left ventricular hypertrophy with normal systolic function and grade 1 diastolic noncompliance. 3. Mild aortic valve sclerosis with no stenosis. 4. No valvular dysfunction noted by Doppler. 5. Compared with examination from February of 2022 small amounts of aortic and mitral regurgitation were not seen on this exam. Left Ventricle Left ventricular chamber dimension is normal. Left ventricular systolic function is normal, estimated at 60-65%. There is mild concentric increased left ventricular wall thickness. The left ventricular diastolic function is grade I diastolic dysfunction. Right Ventricle Right ventricular chamber dimension is normal. Left Atria Left atrial chamber dimension is normal. Right Atria Right atrial chamber dimension is normal. Aortic Valve The aortic valve is trileaflet. There is mild aortic valve sclerosis. Pulmonic Valve The pulmonic valve is not well visualized. Mitral Valve The mitral valve has normal leaflets. Tricuspid Valve The tricuspid valve leaflets are normal. Pericardium/Pleural The pericardium appears normal. Aorta The aortic root size at the sinus of Valsalva is normal. Left Ventricular Outflow Tract Name Value Normal LVOT 2D LVOT Diameter 2.2 cm LVOT Doppler LVOT Peak Gradient 4 mmHg LVOT Mean Gradient 3 mmHg LVOT VTI 22 cm LVOT VTI/AV VTI Ratio 0.7 LVOT Stroke Volume 86 ml LVOT CO 6.2 l/min LVOT CI 2.6 l/min/m2 Pulmonic Valve Name Value Normal RVOT Doppler RVOT Peak Gradient 3 mmHg PV Doppler PV Peak Gradient 5 mmHg Mitral Valve Name Value Normal MV Doppler MV Decel Hidalgo 226 cm/s2
== END 2022-09-23 07:37 | disposition home or self-care (01) ==
PROVIDERS: PCP Emergency Medicine; Visit Provider Internal Medicine Cardiovascular Disease
DX: R00.1 Bradycardia, unspecified (principal); G47.33 Obstructive sleep apnea (adult) (pediatric); M19.90 Unspecified osteoarthritis, unspecified site; R94.31 Abnormal electrocardiogram [ECG] [EKG]; M10.9 Gout, unspecified; E78.5 Hyperlipidemia, unspecified; I10 Essential (primary) hypertension; Z13.6 Encounter for screening for cardiovascular disorders
CPT/HCPCS: 93017; 93306

== ENCOUNTER 2022-11-15 14:38 | Outpatient (CLI) | payer MEDICARE, MEDICAID, SELFPAY ==
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
== END 2022-11-15 14:39 | disposition home or self-care (01) ==
PROVIDERS: PCP Emergency Medicine; Visit Provider Emergency Medicine
DX: M51.36 Other intervertebral disc degeneration, lumbar region (principal)
CPT/HCPCS: 72100

== ENCOUNTER 2022-11-16 08:35 | Outpatient (CLI) | payer MEDICARE, MEDICAID, SELFPAY ==
--- NOTE | 2022-11-17 10:36 | WPDSLEEPSTUD ---
Sleep Study Date of Study: 11/16/22 Ordering Provider: Tru Ramírez M.D. Interpreting Physician: Kailyn Garcia MD Sleep Study Type: Split Polysomnogram Height: 1.7 m Weight: 117.027 kg Body Mass Index: 40.4 Neck Circumference (inches): 16.5 [place]: 3 Reason for Sleep Study He has a history of ORVILLE with CPAP in the past. He has hypertension with elevated blood pressure readings in the morning. His glass technician referred him for snoring and witnessed apneas. Sleep History Gerry Francis is a 57-year-old man with history of hypertension who presents for a split night sleep study. His glass technician documents that the patient has snoring and witnessed apneas. He also has blood pressure which is high in the morning. He used CPAP in the past. He never awakens from sleep short of breath. He never has episodes of waking at night with heartburn, belching or cough.??He occasionally snores, rarely snores loudly enough that others complain. He frequently has trouble sleeping when he has a cold. He rarely wakes up gasping for breath during the night. He never has breathing problems at night witnessed by others. He occasionally sweats excessively at night. He rarely notices his heart pounding or beating irregularly during the night. He rarely falls asleep during the day. He rarely falls asleep involuntarily and never falls asleep while driving. He rarely experiences loss of muscle tone with strong emotion. He never feels paralyzed on waking or falling asleep. He never experiences vivid dreams upon waking or falling asleep. He never feel afraid of going to sleep. He rarely has nightmares. He occasionally recalls his dreams. He occasionally has thoughts racing through his mind. He rarely feels sad or depressed. He rarely feels anxiety or worry about things. He rarely notices parts of his body jerk. He rarely kicks during the night. He rarely feels crawling or aching feelings in his legs. He rarely feels leg pain at night. He never grinds his teeth and rarely has morning jaw pain. He never feels bothered by pain during the day and is never awakened by pain during the night. He occasionally wakes up feeling stiff in the morning, frequently with sore and achy muscles and spine pain in the morning. he has not had a change in his weight during the last year. Normal bedtime is around 11:00 p.m. to 12 midnight, usually falling asleep within 15 minutes. He typically gets about 7-8 hours of sleep per night. His wake up time is 7:00 a.m.. He typically wakes between 2 and 3 times during the night for about 5 minutes to go to the bathroom. He wakes up to go to the bathroom, is able to return to sleep easily. He has urinary frequency, this may also occur during the day. He does not take naps in the afternoon or evening. A short nap lasting 10 or 15 minutes is not refreshing. He feels better in the afternoon compared to other times of day. Habits:??Tobacco:no longer smokes tobacco Caffeine: unknown. Alcohol:none Recreational substances: smokes marijuana daily PMFSH Past Medical History Medical History (Updated 11/17/22 @ 11:14 by Kailyn Garcia MD) Acute appendicitis Acute appendicitis Degenerative joint disease of elbow Gout Hypertension Lateral epicondylitis Obesity (BMI 30-39.9) ORVILLE (obstructive sleep apnea) Right elbow pain Tobacco abuse Surgical History Surgical History History of knee surgery Rt TKA Apr 2021 History of laparoscopic appendectomy 05/09/21 Previous back surgery Family History Family History Other Family history of arthritis Social History Social History (Updated 07/26/22 @ 09:51 by David Currie MD) Social History: Patient smoked less than pack a day but he cannot tell me for how long he smoked. Believes he quit about 10 years ago. He smokes 2 marijuana joints per day. He de
[2022-11-17 11:28] VITALS: BMI 40.4
== END 2022-11-17 07:12 | disposition home or self-care (01) ==
LOC: ANHCSM 08:37
PROVIDERS: PCP Emergency Medicine; Visit Provider Internal Medicine Cardiovascular Disease
DX: G47.33 Obstructive sleep apnea (adult) (pediatric) (principal)
CPT/HCPCS: 95811

== ENCOUNTER 2025-02-05 16:06 | Emergency (ER) | payer MEDICARE, SELFPAY ==
--- OUTSIDE RECORDS SUMMARY | 2021-01-30 11:53 | XMS_ITS | Continuity of Care Document ---
Author Organization [facility] Address [address] [place] [address] [place] [address] Phone Care Team Providers Care Group Captain Name Role Phone Te Palacios MD Unavailable Unavailable Allergies, Adverse Reactions, Alerts Substance Reaction Status Criticality Penicillins Nausea Active No Information Medications Medication Instructions Dosage Effective Dates (start - stop) Status Comments irbesartan 75 mg tablet take 1 tablet by oral route every day 75 MG - Active hydrocodone 7.5 mg-acetaminophen 325 mg tablet take 1 tablet by oral route 2 times every day as needed for pain as needed 1 tablet - Active PRN for pain ,avoid driving or operate machines Procedures Procedure Date OFFICE/OUTPATIENT VISIT, EST OFFICE/OUTPATIENT VISIT, EST OFFICE/OUTPATIENT VISIT, EST OFFICE/OUTPATIENT VISIT, EST OFFICE/OUTPATIENT VISIT, EST OFFICE/OUTPATIENT VISIT, EST OFFICE/OUTPATIENT VISIT, EST OFFICE/OUTPATIENT VISIT, EST PREV VISIT, NEW, AGE 40-64 OFFICE/OUTPATIENT VISIT, NEW Advance Directives Directive Yes / No Effective Date File Name No Information Encounters Encounter Description Practice Location Reason(s) For Visit Diagnoses Date Provider Providers Copied on Encounter OFFICE/OUTPA TIENT VISIT, EST [facility], [address] [place], [id number], [place] tel:[phone] [facility] pain (chief complaint) HTN (chief complaint) HLP (chief complaint) folate1 (chief complaint) proteinuri a1 (chief complaint) low platelet1 (chief complaint) Essential (primary) hypertensionThrombo cytopeniaHyperlipid emiaFolate deficiencyProteinur iaChronic pain syndrome 1 Philip Kellogg [address], [place], [place], [address] , [place]. tel:[phone] [facility], [address], [place], [place], [address], [place] tel:[phone] [facility] No Information 1 Philip Kellogg [address], [place], [place], [address] , [place]. tel:[phone] OFFICE/OUTPA TIENT VISIT, [facility], [address], [place], [place], [address], [place] tel:[phone] [facility] pain1 (chief complaint) HTN1 (chief complaint) edema1 (chief complaint) platelet1 (chief complaint) Essential (primary) hypertensionThrombo cytopeniaChronic pain syndromeEdema 1 Philip Kellogg [address], [place], [place], [address] , [place]. [phone] OFFICE/OUTPA TIENT VISIT, [facility], [address], [place], [place], [address], [place] tel:[phone] [facility] joint pain1 (chief complaint) HTN (chief complaint) Essential (primary) hypertensionPain in right kneePain in left shoulderThrombocyto peniaAbnormal weight loss 1 Philip Kellogg [address], [place], [place], [address] , [place]. tel:[phone] Referring Provider: Te Palacios, [address], [place], [place], [address]. tel:[phone] OFFICE/OUTPA TIENT VISIT, [facility], [address], [place], [place], [address], [place] tel:[phone] [facility] proteinuri a1 (chief complaint) thrombocyt openia1 (chief complaint) foot pain1 (chief complaint) ED1 (chief complaint) ThrombocytopeniaEss ential (primary) hypertensionProtein uriaPain in left footOther disorders of iron metabolismImpotence NOS 8 Philip Tiwari. [address], [place], [place], [address] , [place]. tel:[phone] Referring Provider: Te Palacios [address], [place], [place], [address]. tel:[phone] OFFICE/OUTPA TIENT VISIT, [facility], [address], [place], [place], [address], [place] tel:[phone] [facility] EKg (chief complaint) thrombocyt openia (chief complaint) proteinuri a1 (chief complaint) Body mass index (BMI) 40.0-44.9, adultThrombocytopen iaProteinuriaOther intervertebral disc displacement, lumbar regionAbnormal electrocardiogram [ECG] [EKG] 8 Philip Tiwari. [address], [place], [place], [address] , [place]. tel:[phone] Referring Provider: Tova Hui [address], [place], [place], [address]. tel:[phone] OFFICE/OUTPA TIENT VISIT, [facility], [address], [place], [place], [address], [place] tel:[phone] [facility] HTN (chief complaint) back pain1 (chief complaint) knee (chief complaint) knee pain1 (chief complaint) Body mass index (BMI) 40.0-44.9, adultEssential (primary) hypertensionOther intervertebral disc displacement, lumbar regionPain in right knee Aug-0 8 Philip Tiwari. [address], [place], [place], [address] , [place]. tel:[phone] Referring Provider: Tova Hui [address], [place], [place], [address]. tel:[phone] OFFICE/OUTPA TIENT VISIT, [facility], [address], [place], [place], [address], [place] tel:[phone] [facility] back pain1 (chief complaint) shoudler pain1 (chief complaint) HTN (chief complaint) Body mass index (BMI) 40.0-44.9, adultEssential (primary) hypertensionOther intervertebral disc displacement, lumbar regionOsteoarthriti s 8 Philip Tiwari. [address], [place], [place], [address] , [place]. tel:[phone] Referring Provider: Tova Hui [address], [place], [place], [address]. tel:[phone] OFFICE/OUTPA TIENT VISIT, [facility], [address], [place], [place], [address], [place] tel:[phone] [facility] shoulder pain1 (chief complaint) HTN1 (chief complaint) back pain1 (chief complaint) Essential (primary) hypertensionLumbago with sciatica, left sidePain in right shoulderPain in right knee 8 Philip Tiwari. [address], [place], [place], [address] , [place]. tel:[phone] Referring Provider: [address], [place], [place], [address]. tel:[phone] PREV VISIT, NEW, AGE 40-64 [facility], [address], [place], [place], [address], [place] tel:[phone] [facility] PHysical (chief complaint) Encounter for general adult medical exam w abnormal findingsLumbago with sciatica, left sideEssential (primary) hypertensionNocturi a 8 Philip Tiwari. [address], [place], [place], [address] , [place]. tel:[phone] Referring Provider: [address], [place], [place], [address]. tel:[phone] Family History Family Member Type Diagnosis Age At Onset Mother Problem (finding) Alive and well Father Problem (finding) Alive and well Brother Problem (finding) Alive and well Payers Payer name Insurance type Covered green party ID Authorlja tipaul(s) No Information Social History Type Description Quantity Date Captured Comments Alcohol Use Details No Caffeine Use Details Unknown Tobacco Use Status Never smoked tobacco 2020 Smoking Status Never smoker Sex Male Vital Signs Date / Time: Height Weight BMI Pulse Rate Blood Pressure Temperature Respiratory Rate Body Surface Area Head Circumference BMI percentile Pulse Ox Inhaled Ox 5:16 PM 67.00 in 251.00 lbs 39.3 1 kg/m eter (2) Chief Complaint And Reason For Visit From encounter dated '01/30/2021 16:53'. pain (chief complaint). Description: Pt has chronic left shoulder and right knee pain. Pt does havesevere osteoarthritis of knee .Pt denies any injury Pt denies any swelling Pt states that he is going to have knee replacement soon. Pt needs refill of his pain medication HTN (chief complaint). Description: Pt started irbesartan but he feels occasional mild dizziness Ptdenies any chest pain or headache or syncope. Pt has not been checking his bp at home. HLP (chief complaint). Description: Pt has mild HLP on lab. He is not on any diet folate1 (chief complaint). Description: Pt has mildly low folate. Pt denies any neuropathy or fatigue proteinuria1 (chief complaint). Description: Pt has mild proteinuria Pt denies any urinary symptomsor flank pain low platelet1 (chief complaint). Description: Pt denies any bleeding or bruising. His platelet is ok now Plan Of Treatment Date Type Action Status Goal Special diet education compl eted Goal Prescribed diet education co mpleted Goal Special diet education compl eted Goal Special diet education compl eted Referral Referred To: Joel LOPEZ, Morgan Rowley S [facility]
[address] [place], [place], [address] Ordered: Referrals: Joel LOPEZ, Morgan Pinto. Evaluate and treat ordered Referral Ordered: MAIKEL ROGERS -Podiatric Medicine & Surgery Service Providers : Metalsmith Helper (related to Pain in left foot) ordered Referral Referred To: MAIKEL ROGERS [address] [facility] [address] [facility] [place], [place], [phone] Ordered: Referrals: Podiatric Medicine & Surgery Service Providers : Metalsmith Helper. MAIKEL ROGERS. Evaluate and treat ordered Referral Ordered: US EXAM, ABDOM, COMPLETE ordered Referral Ordered: Frank Rose -Allopathic & Osteopathic Physicians : Orthopaedic Surgery (related to Pain in right knee) ordered Referral Referred To: Frank Rose [facility] [place], [place] [id number] Ordered: Referrals: Allopathic & Osteopathic Physicians : Orthopaedic Surgery. Frank Rose. Evaluate and treat ordered Referral Ordered: Neurosurgery (related to Other intervertebral disc displacement, lumbar region) ordered Referral Ordered: Referrals: Neurosurgery. Evaluate and treat ordered Referral Ordered: MRI LUMBAR SPINE W/O DYE ordered Referral Ordered: SHOULDER XRAY Right shoulder ordered Referral Ordered: COLONOSCOPY AND BIOPSY ordered History Of Present Illness Encounter Date Complaint History Of Prese nt Illness pain Pt has chronic l eft shoulder and right knee pain. Pt does have severe osteoarthritis of knee .Pt denies any injury Pt denies any swelling Pt states that he is going to have knee replacement soon. Pt needs refill of his pain medication low platelet1 Pt denies any bl eeding or bruising. His platelet is ok now proteinuria1 Pt has mild prot einuria Pt denies any urinary symptoms or flank pain folate1 Pt has mildly lo w folate. Pt denies any neuropathy or fatigue HLP Pt has mild HLP on lab. He is not on any diet HTN Pt started irbes shannon but he feels occasional mild dizziness Pt denies any chest pain or headache or syncope. Pt has not been checking his bp at home. edema1 Pt has mild LE p itting edema. worse at night Pt denies any sob or chest pain or cough pain1 Pt has chronic l eft shoulder and right knee pain. Pt saw ortho but he did not ask him about his knee pain. Pt had MRi of left shoulder done by ortho. Pt supposes to see ortho last week but he missed his kristina. He wants to ask me what to do with the knee pain. Pt states that he can barely walk due to joint pain. Pt denies any redness or warmth. Pt wants stronger pain meds. platelet1 Pt denies any bl eeding or bruising. Pt never did the liver ultrasound. Pt denies any abd pain or jaundice. HTN1 Pt has HTN Pt graham s not been taking any BP meds for long time. Pt notices mild bilateral LE edema, especially at night. Pt denies any sob Pt denies any leg redness warmth or calf pain or sob or chest pain. Pt denies any recent travel or bedrest HTN Pt has not bee t aking any BP medication for the past two years .Pt also never did abdominal ultrasound for low platelet .Pt denies any abd pain. He denies any chest pain or headache joint pain1 Pt c/o chronic r ight knee and left shoulder pain for several months but gotten worse during last two weeks. Pt denies any injury. Pt notices mild swelling right knee and also decreased ROM left shoulder as well. Pt denies any injury. PT went to ER and x ray showed severe osteoarthritis right knee and also possible rotator cuff tear of left shoulder with arthritis. Pt denies any redness or warmth of the joint Pt denies any neck pain or radiculopathy or any upper extremity weakness. Pt denies any calf pain ,pt has not been working for more than 2 years and he currently does not have any insurance. Pt is applying disability. ED1 Pt has good libi do but he has been having ED for several months. PT denies any testicular pain or atrophy. pt wants viagra. Pt denies any chest pain with sex foot pain1 Pt recently went to ER for generalized left foot pain. Pt denies any injury. Pt had x ray done which showed possible avulsion fracture dorsal to tarsal bone left foot Pt has chronic left foot numbness due to left sciatica symptoms, which is improving since the back surgery. Pt also has some swelling left foot for unknown reason. Pt then return to ER last week for same symptoms also he also has some right foot pain and swelling as well. Pt states that he received prednisone for possible gout and his pain is resolved now. Pt denies any history of gout. Pt denies any calf pain Pt denies any recent travel or bedrest. Pt denies any chest pain or sob. thrombocytopenia1 Pt has mild th rombocytopenia recently. Pt denies any bruising or any bleeding proteinuria1 Pt has HTn Pt ta kes lisinopril and his BP is stable. Pt has mild proteinuria. Pt denies any UTI symptoms. Pt denies any flank pain EKg Pt has abnormal EKG. Pt denies any chest pain. Pt has bradycardia with PAC and t wave abnormality thrombocytopenia Pt has mildly l ow platelet Pt denies any clotting disorder. proteinuria1 Pt has mild prot einuria pt denies any UTI symptoms knee pain1 pt c/o severe ri ght knee pain Pt has severe arthritis. pt denies any injury. Pt denies any swelling. Pt denies any other complaints knee back pain1 Pt has chronic l ow back pain with left sciatica Pt c/o numbness and tingling left leg. Pt denies any loss of bladder control/ Pt denies any weakness HTN Pt has HTn. Pt i s out of lisinopril. his BP is high shoudler pain1 Pt has shoulder and knee pain which due to arthritis. Pt denies any injury HTN Pt has not been taking lisinopril. He states that he has not been picking it up. Pt denies any chest pain or headache back pain1 Pt has chronic a nd severe low back pain with left sciatica and left leg numbness. Pt denies any loss of bladder or bowel control. 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 Pt has 10/10 pain sometimes. Pt feels tingling feeling left leg. Pt has been taking ultram TID to help his pain back pain1 Pt has chornic l ow back pain with left sciatica. pt states that the leg numbness resolved but he still has numnbess left foot. Pt denies any loss of lbadder control. Pt has DDD on xray. kPt states that neurontin actually helped his pain and numbness slightly. Pt states that he has to shake his left leg to releive the feeling HTN1 pt has HTn. Pt t akes lisinopril. His BP is borderline today. Pt denies any chest pain or headache shoulder pain1 pt fell after tr ipping and fell on right shoulder and right knee last week. Pt denies any head injury. Pt denies any headache or LOC. Pt uanble to move right shoulder above 30 degree since the fall. Pt c/o persistent right shoulder and knee pain. Pt is able to walk and bear weright on right knee PHysical Pt needs annual physical Pt used to take lisinoril but he has not been taking it for a while Pt denies any chest pain or headache. Pt has chronic low back pain. Pt wears back brace. Pt denies any sciatica and any numbess Pt denies any loss of bladder control. Pt woke up with left leg numbness and tingling and pins and needle feeling 10 days ago Pt denies any loss of bladder or bowel control . Pt denies any injury Pt went to Er and xray showed spondylosis. Pt denies any injury. Pt has frequent urination at night. Pt denies any frequent urination during the day Pt denies any dysuria or slow stream. Pt denies any diffiuclty with urination. Pt told me he has history of sleep apnea and CHF. Pt has not seen seen MD for long time Pt denies any sob. Pt dose hve nocturia at night. Instructions Date Instruction Additional Infor samion Special diet education Related t o Body mass index (BMI) 39.0-39.9, adult Weight management Related to Thr ombocytopenia Increase physical activity Relat ed to Thrombocytopenia Prescribed diet education Relate d to Body mass index (BMI) 40.0-44.9, adult Special diet education Related t o Body mass index (BMI) 40.0-44.9, adult Increase activity. Related to Es sential (primary) hypertension Follow a low sodium diet. Relate d to Essential (primary) hypertension Follow a low sodium diet. Relate d to Essential (primary) hypertension Increase activity. Related to Es sential (primary) hypertension Special diet education Related t o Body mass index (BMI) 40.0-44.9, adult Prescribed Diet Education/Lifestyle Education Regarding Diet Related to Dietary Surveillance and Counseling Prescribed Activity and Exercise Education Related to Dietary Surveillance and Counseling Increase physical activity Relat ed to Lumbago with sciatica, left side Weight management Related to Lum bago with sciatica, left side Prescribed Activity and Exercise Education Related to Dietary Surveillance and Counseling Prescribed Diet Education/Lifestyle Education Regarding Diet Related to Dietary Surveillance and Counseling Increase physical activity Relat ed to Encounter for general adult medical exam w abnormal findings Weight management Related to Enc ounter for general adult medical exam w abnormal findings Assessments Type Assessment Date assessment Essential (primary) hypertension assessment Thrombocytopenia assessment Hyperlipidemia assessment Folate deficiency assessment Proteinuria assessment Chronic pain syndrome Mental Status Date Cognitive Assessment Orientation - [place] ed to time, place, person, situation.
--- NOTE | ~2025-02-05 | CT_ITS ---
EXAMINATION: CT brain wo erickson, 02/05/2025 17:53 CDT HISTORY: headache x 2 weeks COMPARISON: No comparisons available. Technique: Axial images obtained of the brain without contrast. One or more of the following dose reduction techniques were used: automated exposure control, adjustment of the mA and/or kV according to patient size, use of iterative reconstruction technique. Findings: No acute infarct or parenchymal hemorrhage. No abnormal mass or mass effect. No midline shift. No extra-axial fluid collections. No hydrocephalus. Mastoid air cells unremarkable. Sinuses and orbits unremarkable. No acute fracture. No significant facial or scalp soft tissue swelling evident. No radiopaque foreign body is seen. Impression: 1.No acute intracranial abnormality. Reviewed, dictated and finalized at location A. Impression: 1.No acute intracranial abnormality.
[2025-02-05 16:08] VITALS: BP 129/84; PULSE 52; RESP 18; O2SAT 96
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
--- OUTSIDE RECORDS SUMMARY | 2025-02-05 16:52 | XMS_ITS | Clinical Summary ---
Author Organization [facility] Address [address] [place] [address] Care Team Providers Care Paving Stone Installer Name Role Phone Unavailable Primary Care Provider Unavailabl e Social History Tobacco Use Types Packs/Day Years Used Date Smoking Tobacco: Never Assessed Sex and Gender Information Value Date Recorded Sex Assigned at Not on file Legal Sex Male 8:05 PM CDT Gender Identity Not on file Sexual Orientation Not on file Plan of Treatment Health Maintenance Due Date Last Done Comments Colorectal Cancer Screening Colonoscopy (10 Years) 1963 Annual Physical 1966 Hepatitis C 1981 DTaP, Tdap and Td Vaccines ( 1 - Tdap) 1982 Pneumococcal Vaccine: 50+ Ye ars (1 of 1 - PCV) 2013 Zoster Vaccines (1 of 2) 2013 COVID-19 Vaccine (1 - 2023-2 5 season) 2025 RSV Immunization or 60+ Years (1 - 1-dose 75+ series) 2038 Meningococcal B Vaccine Aged Out No l onger eligible based on patient's age to complete this topic Meningococcal Vaccine Aged Out No kenn margaret eligible based on patient's age to complete this topic RSV Immunizations Under 20 Months Aged Out No longer eligible based on patient's age to complete this topic
--- OUTSIDE RECORDS SUMMARY | 2025-02-05 16:52 | XMS_ITS | Clinical Summary ---
Author Organization [facility] Address [address] [place] [address] Care Team Providers Care Site Interpreter Name Role Phone Unavailable Primary Care Provider Unavailabl e Medications furosemide (LASIX) 20 mg tablet TAKE 1 TABLET BY MOUTH EVERY DAY 90 Tablet 3 10/31/2018 Active Social History Tobacco Use Types Packs/Day Years Used Date Smoking Tobacco: Never Assessed Sex and Gender Information Value Date Recorded Sex Assigned at Not on file Legal Sex Male 12:26 PM CDT Gender Identity Not on file Sexual Orientation Not on file Plan of Treatment Health Maintenance Due Date Last Done Comments DTAP/TDAP/TD VACCINES (1 - Tdap) 1982 COLORECTAL SCREENING 2008 Colorectal Cancer Screening 2008 FIT-DNA Q 3 years 2008 FIT/FOBT Q 1 year 2008 Flex Sig/CT Colonography Q 5 years 2008 ZOSTER VACCINE (1 of 2) 2013 INFLUENZA VACCINE (#1) 2024 RSV VACCINE (60+ or ) (1 - 1-dose 75+ series) 2038
--- OUTSIDE RECORDS SUMMARY | 2025-02-05 16:52 | XMS_ITS | Clinical Summary ---
Author Organization [facility] Address [address] [place] [phone] Phone Care Team Providers Care Veneer Marker Name Role Phone Unavailable Primary Care Provider Unavailabl e Allergies Active Allergy Reactions Criticality Noted Date Comments Penicillins 12/20/2023 Medications lisinopril (PRINIVIL) 20 MG tablet Take 20 mg by mouth 1 (one) time each day Active amLODIPine (NORVASC) 10 MG tablet Take 10 mg by mouth 1 (one) time each day Active allopurinol (ZYLOPRIM) 100 MG tablet Take 200 mg by mouth 1 (one) time each day Active azithromycin (ZITHROMAX) 250 MG tablet Take 250 mg by mouth 1 (one) time each day Take 2 tablets the first day, then 1 tablet daily for 4 days. Active simvastatin (ZOCOR) 10 MG tablet Take 10 mg by mouth every night Active tadalafil (CIALIS) 10 MG tablet Take 10 mg by mouth 1 (one) time each day if needed for erectile dysfunction Active ferrous sulfate 325 (65 Fe) MG tablet Take 325 mg by mouth 1 (one) time each day with breakfast Active naproxen (NAPROSYN) 375 MG tablet Take 375 mg by mouth every 12 (twelve) hours if needed for mild pain Active losartan (COZAAR) 100 MG tablet Take 100 mg by mouth 1 (one) time each day Active Active Problems Problem Noted Date Diagnosed Date Gout associated problem 12/20/2023 Essential hypertension 12/20/2023 Hyperlipidemia 12/20/2023 Social History Tobacco Use Types Packs/Day Years Used Date Smoking Tobacco: Never Smokeless Tobacco: Never Tobacco Cessation:Counseling Given: Not Answered Alcohol Use Standard Drinks/Week Comments Never 0 (1 standard drink = 0.6 oz pur e alcohol) Sex and Gender Information Value Date Recorded Sex Assigned at Not on file Legal Sex Male 9:40 AM MDT Gender Identity Not on file Sexual Orientation Not on file Plan of Treatment Health Maintenance Due Date Last Done Comments Pneumococcal PPSV23 Highest Risk Adult (1 of 3 - PCV13) 1982 COVID-19 Vaccine (2 - 2024- season) 2025 Influenza Vaccine (#1) 2025 Insurance
--- OUTSIDE RECORDS SUMMARY | 2025-02-05 16:52 | XMS_ITS | Clinical Summary ---
Author Organization [facility] Address [address] [address] Care Team Providers Care Surgery Specialist Name Role Phone Raghu Sanon MD Primary Care Provider Source Comments [facility],non-owned Affiliates and Associated Physician Practices is amultiple site organization consisting of ambulatory clinics and hospital sitesin [place], [place] and [place]. This disclosure is being madepursuant to the Care Everywhere program and may not contain all information available regarding this patient. Last updated 18.[facility] Allergies Active Allergy Reactions Criticality Noted Date Comments Penicillins Itching Low 11/12/2015 Medications * Be aware that medications may not be up to date on this document. Alwaysverify current medications with the patient. allopurinol (Zyloprim) 100 MG tablet 12/26/2022 Active amLODIPine (Norvasc) 10 MG tablet 12/26/2022 Active simvastatin (Zocor) 10 MG tablet TAKE 1 TABLET BY MOUTH ONE TIME PER DAY 12/05/2022 Active ferrous sulfate 325 (65 FE) MG tablet Take 1 (one) tablet by mouth once daily 09/22/2023 Active losartan-hydroCHL OROthiazide (Hyzaar) 100-25 MG tabletIndications :Essential hypertension Take 1 (one) tablet by mouth once daily 90 tablet 3 12/04/2024 Active Active Problems Problem Noted Date Diagnosed Date Essential hypertension 12/15/2023 Assessment & Plan (12/15/2023 12:09 PM CDT): - With good control - No labs on file, check electrolytes, screen kidney function - Cont current meds - Has been on amlo 10 and combo HCTZ-losartan pill for some time Gout of left ankle 12/15/2023 Assessment & Plan (12/15/2023 12:06 PM CDT): - No recent flares - Has been on allopurinol for some time - Check uric acid goal < 6 - Suspect he may have some kidney dysfunction since he an appt with [facility] though no other info and he doesn't know much about it Iron deficiency anemia 12/15/2023 Assessment & Plan (12/15/2023 12:07 PM CDT): - Per his history - Check a cbc - cont Fe for now Chronic heart failure with preserved ejection fr action 12/15/2023 Assessment & Plan (12/15/2023 12:04 PM CDT): - Euvolemic - From his description sounds like hypertensive CM that is well controlled - Not on diuretics currently - Cont to manage HTN as per below Obesity (BMI 30-39.9) 12/15/2023 Assessment & Plan (12/15/2023 12:07 PM CDT): - Discussed exercise, diet - He is motivated Nodule of finger of left hand 12/15/2023 Assessment & Plan (12/15/2023 12:16 PM CDT): - has seen hand surg - Needs removal/biopsy - most likely is a lipoma - Given info to reconnect with surger Complete rotator cuff tear of left shoulder 07/2015 Pain in left shoulder 11/12/2015 Encounters Date Type Department Care Team Description 12/03/2024 Refill [facility] - Internal Med [address] [facility] [place] [address] Raghu Sanon MD MEDICATION REFILL from Last 3 Months Social History Tobacco Use Types Packs/Day Years Used Date Smoking Tobacco: Former Cigarettes Smokeless Tobacco: Never PHQ-2 Answer Date Recorded Patient Health Questionnaire-2 Score 0 12/15/2023 Sex and Gender Information Value Date Recorded Sex Assigned at Not on file Legal Sex Male 5:54 PM FREIGHT ROUTER Gender Identity Not on file Sexual Orientation Not on file Last Filed Vital Signs Vital Sign Reading Time Taken Comments Blood Pressure 121/82 12/15/2023 8:54 AM CDT Pulse 56 12/15/2023 8:54 AM CDT Temperature 36.6 C (97.9 F) 12/15/2023 8:54 AM CDT Respiratory Rate - - Oxygen Saturation 94% 12/15/2023 8:54 AM CDT Inhaled Oxygen Concentration - - Weight 116.1 kg (256 lb) 12/15/2023 8:54 AM CDT Height 171.5 cm (5' 7.5) 12/15/2023 8:54 AM CDT Body Mass Index 39.5 12/15/2023 8:54 AM CDT Plan of Treatment Health Maintenance Due Date Last Done Comments COLOGUARD (AGES 45-75) - COL ON CA SCREENING 1963 COLON MONITORING 1963 COLONOSCOPY - COLON CA SCREENING 1963 CT COLONOGRAPHY - COLON CA SCREENING 1963 Colorectal Cancer Screening 1963 FIT - COLON CA SCREENING 1963 FLEX SIG - COLON CA SCREENING 1963 DTAP/TDAP/TD VACCINES (1 - Tdap) 1982 PNEUMOCOCCAL VACCINE 50+ (1 of 2 - PCV) 1982 ZOSTER VACCINE (1 of 2) 2013 Respiratory Syncytial Virus (RSV) Vaccine Pt: or over 60 yrs (1 - Risk 60-74 years 1-dose series) 2023 DEPRESSION SCREENING 05/23/2024 12/15/2023 MEDICARE AWV CALENDAR YEAR 2024 COVID-19 VACCINE (3 - 2024-2 6 season) 2025 10/18/2020, 09/20/2020 INFLUENZA VACCINE (#1) 2025 SCREENING FOR DIABETES 12/14/2026 , 12/15/2023 HEPATITIS C SCREENING Completed 12/15/2023 HIV SCREENING Completed 12/15/2023 HEPATITIS B VACCINE Aged Out No longe r eligible based on patient's age to complete this topic HIB VACCINE Aged Out No longer eligi ble based on patient's age to complete this topic HPV VACCINE Aged Out No longer eligi ble based on patient's age to complete this topic MENINGOCOCCAL (Group B) VACCINE SHARED DECISION-MAKING Aged Out No longer eligible based on patient's age to complete this topic MENINGOCOCCAL GROUPS A/C/Y/W VACCINE Aged Out No longer eligible b ased on patient's age to complete this topic Procedures Procedure Name Priority Date/Time Associated Diagnosis Comments COMPREHENSIVE METABOLIC PANEL Routine 12/15/2023 10:31 AM CDT Chronic heart failure with preserved ejection fraction HEPATITIS C AB SCREEN RFLX NAAT QUANT Routine 12/15/2023 10:31 AM CDT Encounter for health-related screening HIV-1 HIV-2 ANTIBODY + HIV P24 AG PANEL Routine 12/15/2023 10:31 AM CDT Encounter for health-related screening from Last 3 Months or Most Recently Relevant to Health Maintenance Results * HEPATITIS C AB SCREEN RFLX NAAT QUANT (12/15/2023 10:31 AM CDT) Hepatitis C Antibody Non-react zainachayito Elizabeth-reac tive 12/15/2023 11:47 AM CDT [facility] Comment:Hepatitis C Antibody screen indicates no serologic evidence of past or current infection with Hepatitis C Virus. Patients with unexplained liver disease who are immunocompromised or suspected of having acute Hepatitis C infection may benefit from Nucleic Acid Test (DARRIN) for Hepatitis C Viral RNA to confirm Hepatitis C status. Blood BLOOD SPECIMEN / Unknown Lab Venipuncture / Unknown 12/15/2023 10:31 AM CDT 12/15/2023 10:53 AM CDT us Raghu Sanon MD LAB - CHEMISTRY ORDERABLES Fi nal Result [facility] [address] [address], [facility] [phone] * HIV-1 HIV-2 ANTIBODY + HIV P24 AG PANEL (New on 10/06) (12/15/2023 10:31 AM CDT) HIV Antigen/Antibod y 1 & 2 Non-reacti ve Non-react zaina 12/15/2023 11:47 AM [facility] Comment:No Laboratory eviden ce of HIV infection. Blood BLOOD SPECIMEN / Unknown Lab Venipuncture / Unknown 12/15/2023 10:31 AM CDT 12/15/2023 10:53 AM CDT us Raghu Sanon MD LAB - CHEMISTRY ORDERABLES Fi nal Result [facility] [address] [place] [address], [facility] [phone] * (ABNORMAL) COMPREHENSIVE METABOLIC PANEL (12/15/2023 10:31 AM CDT) Pathologist [facility] BUN 21 7 - 26 mg/dL 12/15/2023 12:07 PM [facility] Creatinine 1.19(H) 0.71 - 1.16 mg/dL 12/15/2023 12:07 PM [facility] Sodium 139 136 - 145 mmol/L 12/15/2023 12:07 PM [facility] Potassium 3.9 3.5 - 4.5 mmol/L 12/15/2023 12:07 PM [facility] Chloride 106 98 - 107 mmol/L 12/15/2023 12:07 PM [facility] CO2 23 22 - 29 mmol/L 12/15/2023 12:07 PM [facility] Glucose 116(H) 70 - 115 mg/dL 12/15/2023 12:07 PM [facility] Calcium 9.1 8.4 - 10.2 mg/dL 12/15/2023 12:07 PM [facility] Protein Total 7.0 6.0 - 8.3 g/dL 12/15/2023 12:07 PM [facility] Albumin 3.8 3.4 - 5.0 g/dL 12/15/2023 12:07 PM [facility] Bilirubin Total 0.6 0.2 - 1.2 mg/dL 12/15/2023 12:07 PM [facility] Alkaline Phosphatase 69 40 - 150 U/L 12/15/2023 12:07 PM [facility] ALT 10 5 - 55 U/L 12/15/2023 12:07 PM [facility] AST 11 5 - 34 U/L 12/15/2023 12:07 PM [facility] Anion Gap 10 6 - 16 12/15/2023 12:07 PM [facility] BUN/Creatinine Ratio 18 7 - 23 12/15/2023 12:07 PM [facility] Osmolality Calculated 292 275 - 295 mOsm/kg 12/15/2023 12:07 PM [facility] Albumin/Globulin Ratio 1.2 1.1 - 2.3 12/15/2023 12:07 PM [facility] eGFR by CKD-EPI 70(L) >=90 mL/min/1.7 3 m2 12/15/2023 12:07 PM [facility] Blood BLOOD SPECIMEN / Unknown Lab Venipuncture / Unknown 12/15/2023 10:31 AM CDT 12/15/2023 11:05 AM [facility] Raghu Sanon MD LAB - CHEMISTRY ORDERABLES nal Result [facility] [address] [place] [address], [facility] [phone] from Last 3 Months or Most Recently Relevant to Health Maintenance Insurance [facility] MANAGED MEDICARE ADV Care Teams Surgery Specialist Relationship Specialty Start Date End Date Raghu Sanon MD [address] [place] [address] PCP - General Internal Medicine 12/15/23
[2025-02-05 17:35] LABS: Hematocrit 41.1 % (42.0-52.0); Hemoglobin 12.5 g/dL (14.0-18.0); Immature Granulocyte Percent A 0.5 % (0-0.5); Lymphocytes Absolute Auto 1.33 K/mm3 (0.9-3.2); Mean Corpuscular HGB Conc 30.4 g/dl (32-36); Mean Corpuscular Hemoglobin 29.1 pg (26-34); Mean Corpuscular Volume 95.6 fl (80-100); Nucleated Red Blood Cells Absolute Auto 0.000 K/mm3 (0.0-0.012); Nucleated Red Blood Cells Perc 0.0 % (0.0-0.2); Platelet Count Result 160 k/mm3 (150-375); Red Blood Count 4.30 M/mm3 (4.6-6.20); White Blood Count 6.5 K/mm3 (4.5-10.0)
[2025-02-05 17:47] LABS: Alanine Aminotransferase 14 U/L (6-50); Albumin Level 3.6 g/dL (3.5-5.1); Alkaline Phosphatase 43 U/L (38-126); Anion Gap 4 mmol/L (4-12); Aspartate Amino Transferase 26 U/L (17-59); Bilirubin,Total 0.7 mg/dL (0.2-1.3); Blood Urea Nitrogen 20 mg/dL (9-20); Calcium 8.7 mg/dL (8.4-10.2); Carbon Dioxide 29 mmol/L (22-30); Chloride 104 mmol/L (98-107); Estimated CRCL calculation 79 ml/min; Estimated Glomerular Filt Rate > 60; Glucose 112 mg/dL (65-110); Potassium 3.8 mmol/L (3.4-5.0); Sodium 137 mmol/L (137-145); Total Protein 6.0 g/dL (6.3-8.2)
--- NOTE | 2025-02-05 17:47 | ED.HA ---
HPI - Headache General Chief Complaint: Headache Stated Complaint: HEADACHES Time Seen by Provider: 02/05/25 17:21 History of Present Illness HPI Narrative: Patient is a 59-year-old male who presents to the ER with a headache for the past 2 weeks. He endorses pain to his bilateral temples and the top of his head. Patient reports when he gets up in the morning his headache goes away, but then returns every day. He denies any recent congestion, fevers, neck stiffness, mastoid tenderness, or visual changes. Patient endorses a history of high blood pressure, gout, anemia, and seasonal allergies. He reports at the start of his symptoms he experienced nausea and vomiting but those symptoms have resolved. Related Data Home Medications ?Medication ?Instructions ?Recorded ?Confirmed ?Last Taken ?Type gabapentin 300 mg capsule 300 mg PO BID 05/09/21 07/26/22 Unknown History lisinopril 20 12.5 tablet PO DAILY 05/09/21 07/26/22 Unknown History mg-hydrochlorothiazide 12.5 mg tablet amlodipine 5 mg tablet 5 mg PO DAILY 07/26/22 07/26/22 Unknown History meloxicam 15 mg tablet 15 mg PO DAILY 07/26/22 07/26/22 Unknown History omeprazole 20 mg capsule,delayed 20 mg PO DAILY 07/26/22 07/26/22 Unknown History release Allergies Allergy/AdvReac Type Severity Reaction Status Date / Time Penicillins AdvReac Unknown Vomiting Verified 07/26/22 00:50 Review of Systems Review of Systems: All systems reviewed & are unremarkable except as noted in HPI and below PMFSH Past Medical History Medical History [place] (obstructive sleep apnea) Degenerative joint disease of elbow Lateral epicondylitis Right elbow pain Acute appendicitis Obesity (BMI 30-39.9) Tobacco abuse Acute appendicitis Gout Hypertension Surgical History Surgical History History of laparoscopic appendectomy 05/09/21 History of knee surgery Rt TKA Apr 2021 Previous back surgery Family History Family History Other Family history of arthritis Social History Social History Social History: Patient smoked less than pack a day but he cannot tell me for how long he smoked. Believes he quit about 10 years ago. He smokes 2 marijuana joints per day. He denies any history of other drug use including IV drug use. No other drug use currently. Denies alcohol use. Lives with his girlfriend, Jenny Platt. He is on disability because of right knee pain. He has 2 cats and 1 dog. He is full code. He nominates his girlfriend to be the individual would make medical decisions for him if he is unable. Smoking status: Former smoker Alcohol intake: never Substance use: current Substance use type: marijuana Lack of Transportation: No Lack of Food: Never True Current Housing: I Have Housing Concerned About Future Housing: No Difficulty Paying Gas/Electric Bills: No Difficulty Paying for Meds: No Currently Unemployed: No Education: High School Diploma/GED Difficulty w/ Childcare or Family Care: No Gender identity (if verbalized by the patient): Male Spiritual care concerns: No Course Vital Signs Vital signs: Vital Signs Pulse Rate 52 L 02/05/25 16:08 Respiratory Rate 18 02/05/25 16:08 Blood Pressure 129/84 02/05/25 16:08 Pulse Oximetry 96 02/05/25 16:08 Pulse Rate 52 L 02/05/25 16:08 Respiratory Rate 18 02/05/25 16:08 Blood Pressure 129/84 02/05/25 16:08 Pulse Oximetry 96 02/05/25 16:08 MDM - Headache MDM Narrative Medical decision making narrative: Patient is a 59-year-old male who presents to the ER with a headache for the past 2 weeks. He endorses pain to his bilateral temples and the top of his head. Patient reports when he gets up in the morning his headache goes away, but then returns every day. He denies any recent congestion, fevers, neck stiffness, mastoid tenderness, or visual changes. Patient endorses a history of high blood pressure, gout, anemia, and seasonal allergies. He reports at the start of his symptoms he experienced nausea and vomiting but those symptoms have resolved. Labs Ordered: CBC, CMP Imaging Ordered: CT brain Medications Ordered: Benadryl IV, Decadron IV, Reglan IV, normal saline IV bolus, magnesium IV Results: Patient's CT scan indicates no acute abnormalities. Diagnosis: Migraine headache Patient Education/Shared MDM: Results of imaging shared with patient. He endorses improvement of symptoms following medication administration. Patient strongly advised to maintain hydration status upon discharge and follow-up with his PCP as needed. He will be discharged home with no new prescriptions. Strict return precautions provided. Patient verbalized understanding and is in agreement with plan. Vital signs stable at time of discharge. All questions answered. Differential Diagnosis Differential diagnosis: Likely migraine, tension headache, subarachnoid hemorrhage and headache Lab Data Attestation: I reviewed the patient's lab results. 02/05/25 17:28 02/05/25 17:28 Labs: Lab Results 02/05/25 Range/Units 17:28 WBC 6.5 (4.5-10.0) K/mm3 RBC 4.30 L (4.6-6.20) M/mm3 Hgb 12.5 L (14.0-18.0) g/dL Hct 41.1 L (42.0-52.0) % MCV 95.6 (80-100) fl MCH 29.1 (26-34) pg MCHC 30.4 L (32-36) g/dl RDW 15.3 H (11.5-14.5) % Plt Count 160 (150-375) k/mm3 MPV 9.7 (7.4-10.4) fl Immature Gran % (Auto) 0.5 (0-0.5) % Neut % (Auto) 70.0 (45.5-73.1) % Lymph % (Auto) 20.4 (18.3-44.2) % [place] % (Auto) 7.2 (2.6-8.5) % Eos % (Auto) 1.4 (0-4.4) % Baso % (Auto) 0.5 (0.2-1.2) % Lymph # (Auto) 1.33 (0.9-3.2) K/mm3 [place] # (Auto) 0.5 (0.1-0.6) K/mm3 Eos # (Auto) 0.1 (0-0.3) K/mm3 Baso # (Auto) 0.0 (0.0-0.1) K/mm3 Abs Immat Gran (auto) 0.03 (0.00-0.031) K/mm3 Absolute Neuts (auto) 4.6 (1.3-6.7) K/mm3 Absolute Nucleated RBC 0.000 (0.0-0.012) K/mm3 Nucleated RBC % 0.0 (0.0-0.2) % Sodium 137 (137-145) mmol/L Potassium 3.8 (3.4-5.0) mmol/L Chloride 104 (98-107) mmol/L Carbon Dioxide 29 (22-30) mmol/L Anion Gap 4 (4-12) mmol/L BUN 20 (9-20) mg/dL Creatinine 0.96 (0.7-1.3) mg/dL Estim Creat Clear Calc 79 ml/min Estimated GFR > 60 (59 - ) Glucose 112 H (65-110) mg/dL Calcium 8.7 (8.4-10.2) mg/dL Total Bilirubin 0.7 (0.2-1.3) mg/dL AST 26 (17-59) U/L ALT 14 (6-50) U/L Alkaline Phosphatase 43 (38-126) U/L Total Protein 6.0 L (6.3-8.2) g/dL Albumin 3.6 (3.5-5.1) g/dL Imaging Data Attestation: I personally reviewed and interpreted this imaging study as follows: Radiologist's impression: Impressions Head CT 02/05/25 18:03 Impression: 1.No acute intracranial abnormality. Discharge Plan Discharge Clinical Impression: Migraine, Headache Patient Disposition: Home Condition: Stable Instructions: Antibiotic Form, Migraine Headache (ED) Additional Instructions: Please return to the ER with any worsening symptoms. Follow-up with primary care provider as needed. Take all medications as prescribed, including regularly scheduled medications. You may take Tylenol as needed for pain control. Patient Language: Tanzanian Prescriptions: No Action lisinopril-hydrochlorothiazide 20-12.5 mg tablet 12.5 tablet PO DAILY gabapentin 300 mg capsule 300 mg PO BID oxycodone-acetaminophen [Percocet] 5-325 mg tablet 1 tablet PO Q6H PRN (Reason: pain) Qty: 14 0RF meloxicam 15 mg tablet 15 mg PO DAILY amlodipine 5 mg tablet 5 mg PO DAILY omeprazole 20 mg capsule,delayed release(DR/EC) 20 mg PO DAILY methylprednisolone 4 mg Tablets,Dose Pack 4 mg PO 0630,1200,1700 Qty: 21 0RF ergocalciferol (vitamin D2) [Vitamin D2] 1,250 mcg (50,000 unit) capsule 1,250 mcg PO WEEKLY Qty: 8 0RF Follow-up/Referrals: Leobardo Dumont MD [Primary Care Provider, Family Practice] Stand Alone Forms: Work/School Release IP Time of Disposition: 18:57
[2025-02-05] MEDS: SODIUM CHLORIDE 0.9% IV 1,000 ML 999 ML IV CONT (18:15)
[2025-02-05] MEDS: MAGNESIUM SULF 1 GM/D5W 100 ML 1 GM/100 ML BAG IVPB (18:16)
[2025-02-05] MEDS: dexAMETHasone SOD PHOS INJ 10 MG/ML 1 ML VIAL IV PUSH (18:17)
[2025-02-05] MEDS: METOCLOPRAMIDE HCL INJ 10 MG/2 ML VIAL IV PUSH (18:17)
--- OUTSIDE RECORDS SUMMARY | 2025-02-05 18:57 | XMS_ITS | Clinical Summary ---
Author Organization [facility] Care Team Providers Care Press Operator Assistant Name Role Phone Leobardo Dumont MD Primary Care Provider [phone] Allergies Active Allergy Reactions Criticality Noted Date [...] this topic Medical Devices Implanted Type Area Senior Staff Specialized Employment Device Identifier Shelf Expiration Date Model / Serial / Lot [employer] 6197-9-010 Simplex P Full Dose Radiopaque Preblend Cement Bone Tobramycin - Sna - [id number] Implanted:Qty: 1 on 04/29/2021 by Morgan Bahena MD at [facility] Bone Cement Right: Knee [employer] 07/20/2022 6197-9-0 10 / NA / [id number] [employer] 6197-9-010 Simplex P Full Dose Radiopaque Preblend Cement Bone Tobramycin - Sna - [id number] Implanted:Qty: 1 on 04/29/2021 by Morgan Bahena MD at [facility] Bone Cement Right: Knee [employer] 07/20/2022 6197-9-0 10 / NA / [id number] [employer] 5521-B-600 Triathlon Knee 6 [place] Baseplate Tibial Cocr - Sna - [id number] Implanted:Qty: 1 on 04/29/2021 by Morgan Bahena MD at [facility] Other - see comments Right: Knee [employer] [id number] 01/19/2026 5521-B-6 00 / NA / [id number] [employer] 9301-X-239-E Component Patellar Triathlon H10mm Od32mm Knee Asymmetric Sterile - Sna - [id number] Implanted:Qty: 1 on 04/29/2021 by Morgan Bahena MD at [facility] Other - see comments Right: Knee [employer] [id number] 01/26/2026 5551-G-3 20-E / NA / [id number] [employer] [id number] Triathlon Cruciate Retaining Cemented Knee Right 5 Component - Sna - [id number] Implanted:Qty: 1 on 04/29/2021 by Morgan Bahena MD at [facility] Other - see comments Right: Knee [employer] [id number] 02/24/2026 [id number] / NA / [id number] [employer] 0146-O-[id number] Insert Tibial Triathlon 6 H9mm Knee Bearing Cruciate Retain Sterile - Sna - [id number] Implanted:Qty: 1 on 04/29/2021 by Morgan Bahena MD at [facility] Other - see comments Right: Knee [employer] [id number] 12/31/2024 5530-G-6 09-E / NA / [id number] Explanted Type Area Senior Staff Specialized Employment Device Identifier Shelf Expiration Date Model / Serial / Lot [employer] [id number] 3.2mm 110mm Bone Pin Fixation Sterile Latex Free - Sn - [id number] Explanted:Qty: 1 on 04/29/2021 by Morgan Bahena MD at [facility] Other - see comments Right: Knee [employer] [id number] 02/17/2025 673030 / N / [id number] Description:For fixational p urposes only. Not intended for implant. [employer] [id number] 4mm 140mm Knee Straight Pin Fixation Sterile - Sna - [id number] Explanted:Qty: 1 on 04/29/2021 by Morgan Bahena MD at [facility] Other - see comments Right: Knee [employer] [id number] 01/21/2026 [id number] / NA / [id number] Description:For fixational p urposes only. Not intended for implant. Insurance [employer] MEDICARE HMO Advance Directives For more information, please contact: [phone] * Full Code (Latest Code Status on File) Date Activated Date Inactivated Comments 05/29/2021 10:45 PM 05/31/2021 4:45 PM * Full Code Date Activated Date Inactivated Comments 04/29/2021 2:03 PM 04/30/2021 4:51 PM Care Teams Press Operator Assistant Relationship Specialty Start Date End Date Leobardo Dumont MD [address] [id number] PCP - General Emergency Medicine 12/20/23
--- OUTSIDE RECORDS SUMMARY | 2025-02-05 18:57 | XMS_ITS | Clinical Summary ---
Author Organization [facility] [employer] Address [address] [facility] [place] [address] Care Team Providers Care Cash Posting Representative Name Role Phone Raghu Sanon MD Primary Care Provider [phone] Source Comments [facility],non-owned Affiliates and Associated Physician Practices is amultiple site organization consisting of ambulatory clinics and hospital sitesin [place], [place], [place] and [place]. This disclosure is being madepursuant to the Care Everywhere program and may not contain all information available regarding this patient. Last updated 18.[facility] [employer] Allergies Active Allergy Reactions Criticality Noted Date [...] kidney dysfunction since he an appt with [facility] though no other info and he doesn't [...] [facility] [address] 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 Gender Identity Not on file Sexual Orientation [...] zainachayito Elizabeth-reac tive 12/15/2023 11:47 AM CDT [facility] Comment:Hepatitis C Antibody screen indicates no [...] LAB - CHEMISTRY ORDERABLES Fi nal Result [facility] [address] [address], [facility] [phone] * HIV-1 HIV-2 ANTIBODY + HIV P24 AG PANEL (New on 10/06) (12/15/2023 10:31 AM CDT) HIV Antigen/Antibod y 1 & 2 Non-reacti ve Non-react zaina 12/15/2023 11:47 AM [facility] Comment:No Laboratory eviden ce of HIV infection. Blood BLOOD SPECIMEN / Unknown Lab Venipuncture / Unknown 12/15/2023 10:31 AM CDT 12/15/2023 10:53 AM CDT us Raghu Sanon MD LAB - CHEMISTRY ORDERABLES Fi nal Result [facility] [address] [place] [address], [facility] [phone] * (ABNORMAL) COMPREHENSIVE METABOLIC PANEL (12/15/2023 10:31 AM CDT) Pathologist [facility] BUN 21 7 - 26 mg/dL 12/15/2023 12:07 PM [facility] Creatinine 1.19(H) 0.71 - 1.16 mg/dL 12/15/2023 12:07 PM [facility] Sodium 139 136 - 145 mmol/L 12/15/2023 12:07 PM [facility] Potassium 3.9 3.5 - 4.5 mmol/L 12/15/2023 12:07 PM [facility] Chloride 106 98 - 107 mmol/L 12/15/2023 12:07 PM [facility] CO2 23 22 - 29 mmol/L 12/15/2023 12:07 PM [facility] Glucose 116(H) 70 - 115 mg/dL 12/15/2023 12:07 PM [facility] Calcium 9.1 8.4 - 10.2 mg/dL 12/15/2023 12:07 PM [facility] Protein Total 7.0 6.0 - 8.3 g/dL 12/15/2023 12:07 PM [facility] Albumin 3.8 3.4 - 5.0 g/dL 12/15/2023 12:07 PM [facility] Bilirubin Total 0.6 0.2 - 1.2 mg/dL 12/15/2023 12:07 PM [facility] Alkaline Phosphatase 69 40 - 150 U/L 12/15/2023 12:07 PM [facility] ALT 10 5 - 55 U/L 12/15/2023 12:07 PM [facility] AST 11 5 - 34 U/L 12/15/2023 12:07 PM [facility] Anion Gap 10 6 - 16 12/15/2023 12:07 PM [facility] BUN/Creatinine Ratio 18 7 - 23 12/15/2023 12:07 PM [facility] Osmolality Calculated 292 275 - 295 mOsm/kg 12/15/2023 12:07 PM [facility] Albumin/Globulin Ratio 1.2 1.1 - 2.3 12/15/2023 12:07 PM [facility] eGFR by CKD-EPI 70(L) >=90 mL/min/1.7 3 m2 12/15/2023 12:07 PM [facility] Blood BLOOD SPECIMEN / Unknown Lab Venipuncture / Unknown 12/15/2023 10:31 AM CDT 12/15/2023 11:[address] [facility] Raghu Sanon MD LAB - CHEMISTRY ORDERABLES nal Result [facility] [address] [place] [address], [facility] [phone] from Last 3 Months or Most Recently Relevant to Health Maintenance Insurance [facility] MANAGED MEDICARE ADV Care Teams Cash Posting Representative Relationship Specialty Start Date End Date Raghu Sanon MD [address] [place] [address] PCP - General Internal Medicine 12/15/23
--- OUTSIDE RECORDS SUMMARY | 2025-02-05 18:57 | XMS_ITS | Clinical Summary ---
Author Organization [facility] Address [address] [place] [address] Care Team Providers Care Hand Inspector Name Role Phone Unavailable Primary Care Provider [...]
--- OUTSIDE RECORDS SUMMARY | 2025-02-05 18:57 | XMS_ITS | Clinical Summary ---
Author Organization [facility] Address [address] [place] [phone] Phone Care Team Providers Care Crozer Name Role Phone Unavailable Primary Care Provider [...]
--- OUTSIDE RECORDS SUMMARY | 2025-02-05 18:57 | XMS_ITS | Clinical Summary ---
Author Organization [facility] Address [address] [place] [address] Care Team Providers Care Tester Wafer Substrate Name Role Phone Unavailable Primary Care Provider [...]
== END 2025-02-05 19:25 | disposition home or self-care (01) ==
LOC: ANHED 18:55
PROVIDERS: Family Medicine; Emergency Provider Registered Nurse; PCP Emergency Medicine
DX: G43.909 Migraine, unspecified, not intractable, without status migrainosus (principal); I10 Essential (primary) hypertension; E66.9 Obesity, unspecified; Z68.35 Body mass index [BMI] 35.0-35.9, adult; M19.029 Primary osteoarthritis, unspecified elbow; M10.9 Gout, unspecified; G47.33 Obstructive sleep apnea (adult) (pediatric); Z87.891 Personal history of nicotine dependence; Z79.899 Other long term (current) drug therapy
CPT/HCPCS: 36415; 70450; 80053; 85025; 96365; 96375; 99284; J1100; J1200; J2765; J3475; J7030